=== PATIENT | male | born 1935 | race Caucasian/White ===

== ENCOUNTER 2021-03-04 11:20 | Inpatient (IN) ==
[2021-03-04] MEDS ORDERED: ACETAMINOPHEN 1,000 MG/100 ML VIAL IV STA (11:59)
[2021-03-04] MEDS ORDERED: dexAMETHasone**PF** 10 MG/ML VIAL IV ONE (11:59)
[2021-03-04 12:09] LABS: Mean Corpuscular Hemoglobin 30.6 pg (25-34); Mean Corpuscular Hgb Conc 34.1 g/dL (32-36); Mean Corpuscular Volume 89.7 fL (80-100); Mean Platelet Volume 8.9 fL (7.4-10.4); Platelet Count 363 K/uL (130-400); RDW Coefficient of Variation 13.7 % (11.5-14.5); RDW Standard Deviation 45.2 fL (36.4-46.3); Red Blood Count 4.57 M/uL (4.7-6.1); White Blood Count 8.01 K/uL (4.8-10.8)
[2021-03-04 12:25] LABS: INR 1.1 (0.9-1.1); Partial Thromboplastin Ratio 1.2; Partial Thromboplastin Time 30.6 Seconds (21.0-31.0)
[2021-03-04 12:27] LABS: D Dimer 3880 ug/L FEU (0-500); Immature Granulocytes # (auto) 0.05 K/uL (0.00-0.02); Immature Granulocytes % (auto) 0.6 %; Lymphocytes # (auto) 0.64 K/uL (1.2-3.4); Monocytes # (auto) 0.68 K/uL (0.11-0.59); Monocytes % (auto) 8.5 %; Neutrophils # (auto) 6.64 K/uL (1.4-6.5); Neutrophils % (auto) 82.9 %
[2021-03-04 12:29] LABS: Alanine Aminotransferase 36 U/L (12-78); Albumin Level 3.1 gm/dl (3.4-5.0); Aspartate Aminotransferase 51 U/L (15-37); BUN Creatinine Ratio 36.3 (10-20); Blood Urea Nitrogen 89 mg/dl (7-18); C Reactive Protein 6.91 mg/dl (0-0.29); Calcium 8.3 mg/dl (8.5-10.1); Carbon Dioxide 17 mmol/L (21-32); Chloride 114 mmol/L (98-107); Creatinine Clr Calc Pharmacy 22.2 ml/min; Est GFR (African American) 27.3 ml/min; Est GFR (Non-African American) 23.6 ml/min; Glucose 127 mg/dl (70-99); Magnesium 2.4 mg/dl (1.8-2.4); Sodium 138 mmol/L (136-145)
[2021-03-04 12:34] LABS: Albumin Globulin Ratio 0.7 (0.9-2); Alkaline Phosphatase 50 U/L (45-117); Bilirubin,Total 0.8 mg/dl (0.2-1); Ferritin 1989.5 ng/ml (8-388); Globulin 4.6 gm/dl (2.5-4.0); NT Pro B Type Natriuretic Pept 1527 pg/ml (0-1800); Total Protein 7.7 gm/dl (6.4-8.2); Troponin I < 0.015 ng/ml (0-0.045)
[2021-03-04] MEDS: MAGNESIUM SULFATE / D5W 1 GM/100 ML BAG IV SCH ×2 (12:34→13:04)
--- NOTE | 2021-03-04 13:01 | XRay Report ---
XR chest 1V portable HISTORY: 85 years-old Male SEPSIS acute sepsis COMPARISON: None TECHNIQUE: Semierect portable AP view of the chest FINDINGS: Cardiac silhouette is enlarged. Pulmonary vascular congestion. No pneumothorax. Mild blunting of the costophrenic angles suggestive of trace effusions. Interstitial coarsening with patchy bibasilar and right lateral midlung airspace opacities. Degenerative changes of the shoulders and spine. IMPRESSION: 1. Cardiomegaly with pulmonary vascular congestion. 2. Patchy right lateral midlung and ill-defined bibasilar densities are suspicious for superimposed i nfectious or inflammatory process. 3. Trace pleural effusions. ACT 112: Negative or not required by law. The above report was generated using voice recognition software. It may contain grammatical, syntax o r spelling errors. Electronically signed by: Yehuda Khalil M.D. 03/04/2021 1:00 PM
[2021-03-04] MEDS ORDERED: SODIUM CHLORIDE 0.9% 1000ML 500 ML IV ONE (13:07)
--- NOTE | 2021-03-04 14:12 | History & Physical Report ---
Date of Service March 04, 2021 Assessment & Plan (1) Acute respiratory failure with hypoxia: Plan: Admit to monitored bed Stable on 6 L oxygen mask for now Further treatment as noted below (2) COVID: Plan: Patient has typical Covid pneumonia with accompanying lab abnormalities Was given 6 mg of IV dexamethasone, will continue this for now Start remdesivir for 5-day course Await blood and sputum cultures Albuterol metered-dose inhaler as needed for shortness of breath (3) DILIP (acute kidney injury): Plan: Bladder scan to rule out retention Gentle IV hydration Hold lisinopril (4) D-dimer, elevated: Plan: With hypoxia and Covid diagnosis, PE cannot be definitively ruled out Due to patient's renal dysfunction, CT angiogram could not be performed and a V/Q will be of limited value patient with multifocal pneumonia Because of this, will need to start heparin drip as empiric treatment until definitive testing can be performed Check lower extremity Dopplers (5) Hyperlipidemia: Plan: Patient is on simvastatin 20 mg daily, I will 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 Will hold these for now secondary to relative hypotension and renal dysfunction (7) Hypothyroid: Plan: Continue levothyroxine 50 mcg daily History of Present Illness Chief Complaint: Shortness of breath Primary Care Provider: DWAINE Ybarra This is an 85-year-old male with past medical history of hyperlipidemia, hypertension, and hypothyroidism that presents today with shortness of breath. Unfortunately, the patient is a very poor historian and speaks very little, does not answer many questions and may in fact be confused. There are no family members in the room with the patient at the time my evaluation. History is per ER physician. ER physician tells me that the patient's was recently diagnosed with Covid on 02/23 although she was having few symptoms. Patient himself had not been tested but started experiencing some chills with a cough as well as some malaise and anorexia several days prior to presentation. Patient started having shortness of breath which prompted EMS be called to suddenly bring patient to the emergency room. Triage documentation shows that the patient's blood pressure was stable and that was afebrile but his O2 sat was 89% on room air when he arrived. Patient was started on 5 L nasal cannula and subsequently placed on 6 L oxygen as. He seems to be comfortable with the time my evaluation. ER evaluation is concerning for Covid pneumonia as the patient had hypoxia, mild hypotension, and abnormal laboratory values that have been historically seen with Covid. Chest x-ray also showed bilateral alveolar infiltrate. Patient did subsequently test positive for Covid pneumonia. He is now being admitted for further treatment of this. The patient did note to me that he has not been vaccinated for Covid. Allergies Allergy/AdvReac Type Severity Reaction Status Date / Time No Known Allergies Allergy Verified 03/04/21 13:22 Home Medications Medication Instructions Recorded Confirmed Type amlodipine 10 mg tablet 10 mg PO DAILY #90 tab 06/05/20 03/04/21 Rx levothyroxine 50 mcg tablet 50 mcg PO DAILY 06/05/20 03/04/21 History lisinopril 20 mg tablet 20 mg PO BID #180 tab 06/05/20 03/04/21 Rx metoprolol succinate 50 mg 50 mg PO BID #180 tab 06/05/20 03/04/21 Rx tablet,extended release 24 hr simvastatin 20 mg tablet 20 mg PO DAILY #90 tab 06/05/20 03/04/21 Rx dextromethorphan-guaifenesin 5 10 ml PO Q6H PRN 03/04/21 03/04/21 History mg-100 mg/5 mL oral liquid (Robitussin Cough-Chest Congestion DM) Past Med/Surg History Medical History Hypertension Hypothyroid Surgical History History of cataract extraction Family History Aunt Breast cancer Father Myocardial infarction Denies family history of Ovarian cancer Prostate cancer Colorectal cancer Social History Smoking Status: Never smoker Second Hand Exposure: No; Hx Alcohol Use: No Hx Substance Use: No Preferred Language: Liberian Visual Impairment: No Limitations Hearing Ability: Hard of Hearing Beliefs That Will Affect Care: None marital status: Current Living Situation: Spouse current occupational status: retired How many Children do You have: 3 Feels Safe at Home: Yes caffeine: Yes Dental Care, Regularly: Yes Physical Activity Frequency: Daily Physical Activity Frequency Comment: yard working- hunting Seatbelt Use: always Sunscreen Use: Yes Review of Systems Review of Systems: Patient is not very verbal, may be somewhat confused and review of systems is obtained for this reason. Physical Exam Constitutional: + frail appearing; no acute distress Neck: trachea midline, no thyromegaly Respiratory: + labored breathing Auscultation: + diminished lung sounds and + rales; no crackles, no rhonchi and no wheezes Cardiovascular: Rate/Rhythm: regular rate and regular rhythm Heart Sounds: normal S1, normal S2 and + murmur Gastrointestinal (Abdomen): Inspection/Auscultation: abdomen normal to inspec tion Percussion/Palpation: abdomen soft; abdomen nontender, no guarding, abdomen not rigid and no hepatosplenomegaly Skin: no rashes, warm and dry Psychiatric: Orientation: oriented to person; + uncooperative Speech: + mute (paucity of speech) Affect: + flat affect Results & Data Results & Data ([facility]) Vital Signs (Past 12 Hours) Vital Signs Temp Pulse Pulse Resp BP BP Pulse Ox 03/04/21 13:46 68 20 97/51 L 92 03/04/21 12:59 84 26 H 115/56 L 93 03/04/21 12:57 88 L 03/04/21 11:55 37.3 C 95 H 18 126/62 94 Laboratory Results Laboratory Results WBC 8.01 K/uL (4.8-10.8) 03/04/21 11:48 RBC 4.57 M/uL (4.7-6.1) L 03/04/21 11:48 Hgb 14.0 g/dL (14.0-18.0) 03/04/21 11:48 Hct 41.0 % (42-52) L 03/04/21 11:48 MCV 89.7 fL (80-100) 03/04/21 11:48 MCH 30.6 pg (25-34) 03/04/21 11:48 MCHC 34.1 g/dL (32-36) 03/04/21 11:48 RDW Std Deviation 45.2 fL (36.4-46.3) 03/04/21 11:48 RDW Coeff of Thi 13.7 % (11.5-14.5) 03/04/21 11:48 Plt Count 363 K/uL (130-400) 03/04/21 11:48 MPV 8.9 fL (7.4-10.4) 03/04/21 11:48 Immature Gran % (Auto) 0.6 % 03/04/21 11:48 Neut % (Auto) 82.9 % 03/04/21 11:48 Lymph % (Auto) 8.0 % 03/04/21 11:48 [place] % (Auto) 8.5 % 03/04/21 11:48 Eos % (Auto) 0.0 % 03/04/21 11:48 Baso % (Auto) 0.0 % 03/04/21 11:48 Neut # (Auto) 6.64 K/uL (1.4-6.5) H 03/04/21 11:48 Lymph # (Auto) 0.64 K/uL (1.2-3.4) L 03/04/21 11:48 [place] # (Auto) 0.68 K/uL (0.11-0.59) H 03/04/21 11:48 Eos # (Auto) 0.00 K/uL (0-0.5) 03/04/21 11:48 Baso # (Auto) 0.00 K/uL (0-0.2) 03/04/21 11:48 Immature Gran # (Auto) 0.05 K/uL (0.00-0.02) H 03/04/21 11:48 ESR 43 mm/hr (0-20) H 03/04/21 11:48 PT 11.0 Seconds (9.0-12.0) 03/04/21 11:48 INR 1.1 (0.9-1.1) 03/04/21 11:48 APTT 30.6 Seconds (21.0-31.0) 03/04/21 11:48 PTT Ratio 1.2 03/04/21 11:48 D-Dimer 3880 ug/L FEU (0-500) H* 03/04/21 11:48 Sodium 138 mmol/L (136-145) 03/04/21 11:48 Potassium 5.0 mmol/L (3.5-5.1) 03/04/21 11:48 Chloride 114 mmol/L (98-107) H 03/04/21 11:48 Carbon Dioxide 17 mmol/L (21-32) L 03/04/21 11:48 Anion Gap 7.0 (3-11) 03/04/21 11:48 BUN 89 mg/dl (7-18) H 03/04/21 11:48 Creatinine 2.44 mg/dl (0.6-1.4) H 03/04/21 11:48 Est Cr Clr Drug Dosing 22.2 ml/min 03/04/21 11:48 Est GFR ( Amer) 27.3 ml/min 03/04/21 11:48 Est GFR (Non-Af Amer) 23.6 ml/min 03/04/21 11:48 BUN/Creatinine Ratio 36.3 (10-20) H 03/04/21 11:48 Glucose 127 mg/dl (70-99) H 03/04/21 11:48 Lactate 2.0 mmol/L (0.4-2.0) 03/04/21 12:44 Calcium 8.3 mg/dl (8.5-10.1) L 03/04/21 11:48 Magnesium 2.4 mg/dl (1.8-2.4) 03/04/21 11:48 Ferritin 1989.5 ng/ml (8-388) H 03/04/21 11:48 Total Bilirubin 0.8 mg/dl (0.2-1) 03/04/21 11:48 AST 51 U/L (15-37) H 03/04/21 11:48 ALT 36 U/L (12-78) 03/04/21 11:48 Alkaline Phosphatase 50 U/L (45-117) 03/04/21 11:48 Lactate Dehydrogenase 499 U/L (87-241) H 03/04/21 11:48 Troponin I < 0.015 ng/ml (0-0.045) 03/04/21 11:48 C-Reactive Protein 6.91 mg/dl (0-0.29) H 03/04/21 11:48 NT-Pro-B Natriuret Pep 1527 pg/ml (0-1800) 03/04/21 11:48 Total Protein 7.7 gm/dl (6.4-8.2) 03/04/21 11:48 Albumin 3.1 gm/dl (3.4-5.0) L 03/04/21 11:48 Globulin 4.6 gm/dl (2.5-4.0) H 03/04/21 11:48 Albumin/Globulin Ratio 0.7 (0.9-2) L 03/04/21 11:48 Procalcitonin 0.79 ng/ml (0-0.5) H 03/04/21 11:48 COVID-19 Eval Order Covid19 at [facility] 03/04/21 12:07 SARS-CoV-2 (PCR) POSITIVE (Negative) A* 03/04/21 12:07 Impressions Chest X-Ray 03/04/21 11:59 XR chest 1V portable HISTORY: 85 years-old Male SEPSIS acute sepsis COMPARISON: None TECHNIQUE: Semierect portable AP view of the chest FINDINGS: Cardiac silhouette is enlarged. Pulmonary vascular congestion. No pneumothorax. Mild blunting of the costophrenic angles suggestive of trace effusions. Interstitial coarsening with patchy bibasilar and right lateral midlung airspace opacities. Degenerative changes of the shoulders and spine. IMPRESSION: 1. Cardiomegaly with pulmonary vascular congestion. 2. Patchy right lateral midlung and ill-defined bibasilar densities are suspicious for superimposed infectious or inflammatory process. 3. Trace pleural effusions. ACT 112: Negative or not required by law. The above report was generated using voice recognition software. It may contain grammatical, syntax or spelling errors. Electronically signed by: Yehuda Khalil M.D. 03/04/2021 1:00 PM PG Care Time/CCT Total # of Minutes Spent Total Time Spent with Patient: Total time spent is greater than 50% in coordination of care (as documented) at patient's floor/unit and/or counseling patient: Coding Level of Care Code 44244 Initial Inpt Care Lvl 3 Diagnoses Hyperlipidemia E78.5 Hypertension I10 Hypothyroid E03.9 Acute respiratory failure with hypoxia J96.01 COVID U07.1 DILIP (acute kidney injury) N17.9 D-dimer, elevated R79.89
[2021-03-04] MEDS ORDERED: REMDESIVIR 200 MG in SODIUM CHLORIDE 0.9% 210 ML IV STA (14:35)
[2021-03-04] MEDS ORDERED: Heparin IV Adult Wt-Based Standard WITH Bolus Protocol STA (14:35)
[2021-03-04] MEDS ORDERED: HEPARIN SOD (PORCINE) 1000 UNIT/ML ONE (14:55)
[2021-03-04] MEDS ORDERED: HEPARIN 25000 UNIT/500 ML D5W IV ONE (14:55)
--- NOTE | 2021-03-04 16:49 | Emergency Department Note ---
Impression & Plan COVID, Acute respiratory failure with hypoxia, DILIP (acute kidney injury), D- dimer, elevated ED Provider Note NAME: STU MARK AGE: 85 SEX: M : 1935 ARRIVES VIA: Ambulance INFORMANT: Patient, EMS, son: Bob: [phone] ED PROVIDER(S): Donnell Mendoza MD CHIEF COMPLAINT: Resp distress HPI: Records review reveals that the patient had a wellness visit in November and has a history of hypertension hyperlipidemia. This is an 85-year-old male who presents to the emergency department from home. The patient's was diagnosed with Covid last Tuesday. Patient's son reports that the patient has been laying on the couch for at least the past week and has not been really eating or drinking. The patient himself has no complaints though appears very confused. An ambulance was summoned to the house and EMS reports that they started an IV and gave the patient some fluid as well as a breathing treatment. The patient was also placed on oxygen. The patient was noted to be hypoxic when the ambulance arrived the patient has not been tested yet however he is complaining of general weakness along with aches and pains. He reports nothing appears to make the weakness any better or worse and he has not taken anything for it. ROS: See above HPI for pertinent positives & negatives. A total of 10 systems reviewed and were otherwise negative. PAST MEDICAL HISTORY: See Below PAST SURGICAL HISTORY: See Below FAMILY HISTORY: See Below SOCIAL HISTORY: See Below HOME MEDICATIONS: See Below ALLERGIES: See Below VITALS: See Below PHYSICAL EXAMINATION: VITAL SIGNS - Vital signs and nursing notes were reviewed. GENERAL - 85-year-old male appearing stated age who is in no acute distress. Pt appears confused to where he is as well as time/date SKIN - Without rashes. HEAD - NC/AT. EYES - PERRL with EOMI bilaterally. Sclera anicteric. Palpebral conjunctiva pink and moist with no injection noted. EARS - No deformities of external structures noted on gross examination bila terally. NOSE - Midline and without cyanosis. No epistaxis or purulent drainage noted. Septum midline without deviation or septal hematoma noted. MOUTH/OROPHARYNX - Without perioral cyanosis. Buccal mucosa pink and moist and without leukoplakia. Tongue midline with equal elevation of palate bilaterally. No tonsillar hypertrophy, erythema, or exudates noted. NECK - Neck with FROM. Supple to palpation. LUNGS - Chest wall symmetric without accessory muscle use, intercostals retractions, or central cyanosis. Normal vesicular breath sounds CTA B/L. No wheezes, rales, or rhonchi appreciated. CARDIAC - RRR with S1/S2. No murmur, rubs, or gallops appreciated. ABDOMEN - Abdominal contour without pulsations or visible masses. BS normoactive all four quadrants. No tenderness, palpable masses, hepatosplenomegaly, or ascites noted. EXTREMITIES - No clubbing or peripheral cyanosis. No pretibial edema present. +3/5 radial, posterior tibial, and dorsalis pedis pulses palpated throughout. +5 /5 strength noted in UE/LE bilaterally. NEUROLOGIC - Cranial nerves II through XII grossly intact. Sensory intact to light touch throughout. Patellar reflexes +2/4. PSYCH - A&Ox3 and cooperates fully with examiner. Pt is very pleasant and interacts well with examiner. MEDICAL DECISION MAKING: Patient was seen and evaluated as above in room B8. Review was performed of nursing notes and vital signs. I did review pertinent previous visits and patient history. After obtaining a thorough history and physical examination the above work up was performed. This is an 85-year-old male who presents emergency department hypoxic. He is found to be Covid positive. He also has an elevated D-dimer however is also in acute renal failure. Based on this the patient was started on Gentle IV hydration. The patient was given Decadron as well. He was started on a heparin drip here in the emergency department and given magnesium. Because the patient is requiring oxygen and is in acute renal failure I did discuss the case with the hospitalist service who did agree to admit the patient. I also spoke with the son at length over the patient's condition. They are going to have a family meeting about their father's condition until that time the patient is a full code. Patient's chest x-ray interpreted by me is concerning for multifocal pneumonia consistent with pneumonia. Patient also appears to be in a new onset atrial fibrillation. An order was placed for continuous cardiac monitoring. The monitor shows a rate of 83 with Atrial fib rhythm. The patient was evaluated during a period of high volume and high acuity during the global COVID-19 pandemic, and that diagnosis was suspected/considered upon their initial presentation. Their evaluation, treatment and testing was consi stent with current guidelines for patients who present with complaints or symptoms that may be related to COVID-19. Patient was seen while provider was wearing PPE. Triage Nursing notes reviewed. Prior medical records reviewed Vital Signs: reviewed and remarkable for no significant abnormalities Differential diagnosis: Reactive airway disease, pneumonia, pneumothorax, COPD, CHF, infections, cardiac ischemia, pulmonary embolism, musculoskeletal, gastrointestinal, as well as other pathologies. ER treatment provided: See below Diagnostics interpreted by me: ECG: EKG shows an atrial fibrillation QTC is 433 ventricular rate is [address] elevation or depression there is no previous EKG to compare to Laboratory studies: As stated above and show below. Imaging studies: See below Consultation(s): Internal Medicine ED COURSE: Procedures: none PDMP:reviewed and no issues Critical Care: I have personally spent greater than 30 minutes of critical care time in the direct management of this patient. This includes bedside care, interpretation of diagnostic studies, and testing, discussion with consultants, patient, and family members, and other required patient management activities. This 30 minutes is in excess of all separately billable procedures. Past Med/Surg History Medical History Hypertension Hypothyroid Surgical History History of cataract extraction Family History Aunt Breast cancer Father Myocardial infarction Denies family history of Ovarian cancer Prostate cancer Colorectal cancer Social History Smoking Status: Never smoker Second Hand Exposure: No; Hx Alcohol Use: No Hx Substance Use: No Preferred Language: Spanish Communication Ability: Effective Visual Impairment: No Limitations Hearing Ability: Hard of Hearing [employer] Security Required: No Beliefs That Will Affect Care: None marital status: Current Living Situation: Spouse current occupational status: retired How many Children do You have: 3 Other Information That Helps Us Care for You: No Feels Safe at Home: Yes Safety Concerns: Feels Safe At This Time caffeine: Yes Dental Care, Regularly: Yes Physical Activity Frequency: Daily Physical Activity Frequency Comment: yard working- hunting Seatbelt Use: always Sunscreen Use: Yes Assistive Devices: None Allergies Allergies Allergy/AdvReac Type Severity Reaction Status Date / Time No Known Allergies Allergy Verified 03/04/21 13:22 Home Meds Home Medications Medication Instructions Recorded Confirmed levothyroxine 50 mcg tablet 50 mcg PO DAILY 06/05/20 03/04/21 dextromethorphan-guaifenesin 5 10 ml PO Q6H PRN 03/04/21 03/04/21 mg-100 mg/5 mL oral liquid (Robitussin Cough-Chest Congestion DM) Previous Rx's Medication Instructions Recorded amlodipine 10 mg tablet 10 mg PO DAILY #90 tab 06/05/20 lisinopril 20 mg tablet 20 mg PO BID #180 tab 06/05/20 metoprolol succinate 50 mg 50 mg PO BID #180 tab 06/05/20 tablet,extended release 24 hr simvastatin 20 mg tablet 20 mg PO DAILY #90 tab 06/05/20 Results & Data (ED) Vital Signs Vital Signs - 24 hr 03/04/21 11:55 03/04/21 12:57 03/04/21 12:59 Temperature 37.3 C Temperature Source Oral Pulse Rate 95 H Pulse Rate [Finger] 84 Respiratory Rate 18 26 H Blood Pressure 126/62 Blood Pressure [Left Arm] 115/56 L Blood Pressure Mean 83 Blood Pressure Mean [Left Arm] 75 Pulse Oximetry 94 88 L 93 Oxygen Delivery Method Nasal Cannula Nasal Cannula Oxymask Oxygen Flow Rate 5 5 6 Sepsis Recent Fever Within 48 Hours Yes Sepsis New/Unexplained Change in Mental Status N/A Sepsis Action Taken by Nursing No Action Required Oxygen Flow Rate - Titration 6 Pulse Oximetry Post Tiitration 91 03/04/21 13:46 03/04/21 14:38 Temperature Temperature Source Pulse Rate Pulse Rate [Finger] 68 83 Respiratory Rate 20 22 Blood Pressure Blood Pressure [Left Arm] 97/51 L 114/73 Blood Pressure Mean Blood Pressure Mean [Left Arm] 66 86 Pulse Oximetry 92 92 Oxygen Delivery Method Oxymask Oxymask Oxygen Flow Rate 6 6 Sepsis Recent Fever Within 48 Hours Sepsis New/Unexplained Change in Mental Status Sepsis Action Taken by Nursing Oxygen Flow Rate - Titration Pulse Oximetry Post Tiitration Laboratory Data Result diagrams: 03/07/21 05:28 03/07/21 16:29 Lab Results 03/04/21 03/04/21 03/04/21 Range/Units 11:48 11:48 11:48 WBC 8.01 (4.8-10.8) K/uL RBC 4.57 L (4.7-6.1) M/uL Hgb 14.0 (14.0-18.0) g/dL Hct 41.0 L (42-52) % MCV 89.7 (80-100) fL MCH 30.6 (25-34) pg MCHC 34.1 (32-36) g/dL RDW Std Deviation 45.2 (36.4-46.3) fL RDW Coeff of Thi 13.7 (11.5-14.5) % Plt Count 363 (130-400) K/uL MPV 8.9 (7.4-10.4) fL Immature Gran % (Auto) 0.6 % Neut % (Auto) 82.9 % Lymph % (Auto) 8.0 % Davidson % (Auto) 8.5 % Eos % (Auto) 0.0 % Baso % (Auto) 0.0 % Neut # (Auto) 6.64 H (1.4-6.5) K/uL Lymph # (Auto) 0.64 L (1.2-3.4) K/uL Davidson # (Auto) 0.68 H (0.11-0.59) K/uL Eos # (Auto) 0.00 (0-0.5) K/uL Baso # (Auto) 0.00 (0-0.2) K/uL Immature Gran # (Auto) 0.05 H (0.00-0.02) K/uL ESR 43 H (0-20) mm/hr PT 11.0 (9.0-12.0) Seconds INR 1.1 (0.9-1.1) APTT 30.6 (21.0-31.0) Seconds PTT Ratio 1.2 D-Dimer 3880 H* (0-500) ug/L FEU Sodium (136-145) mmol/L Potassium (3.5-5.1) mmol/L Chloride (98-107) mmol/L Carbon Dioxide (21-32) mmol/L Anion Gap (3-11) BUN (7-18) mg/dl Creatinine (0.6-1.4) mg/dl Est Cr Clr Drug Dosing ml/min Est GFR ( Amer) ml/min Est GFR (Non-Af Amer) ml/min BUN/Creatinine Ratio (10-20) Glucose (70-99) mg/dl Lactate (0.4-2.0) mmol/L Calcium (8.5-10.1) mg/dl Magnesium (1.8-2.4) mg/dl Ferritin (8-388) ng/ml Total Bilirubin (0.2-1) mg/dl AST (15-37) U/L ALT (12-78) U/L Alkaline Phosphatase (45-117) U/L Lactate Dehydrogenase (87-241) U/L Troponin I (0-0.045) ng/ml C-Reactive Protein (0-0.29) mg/dl NT-Pro-B Natriuret Pep (0-1800) pg/ml Total Protein (6.4-8.2) gm/dl Albumin (3.4-5.0) gm/dl Globulin (2.5-4.0) gm/dl Albumin/Globulin Ratio (0.9-2) Procalcitonin (0-0.5) ng/ml COVID-19 Eval Order SARS-CoV-2 (PCR) (Negative) 03/04/21 03/04/21 03/04/21 Range/Units 11:48 11:48 11:48 WBC (4.8-10.8) K/uL RBC (4.7-6.1) M/uL Hgb (14.0-18.0) g/dL Hct (42-52) % MCV (80-100) fL MCH (25-34) pg MCHC (32-36) g/dL RDW Std Deviation (36.4-46.3) fL RDW Coeff of Thi (11.5-14.5) % Plt Count (130-400) K/uL MPV (7.4-10.4) fL Immature Gran % (Auto) % Neut % (Auto) % Lymph % (Auto) % Davidson % (Auto) % Eos % (Auto) % Baso % (Auto) % Neut # (Auto) (1.4-6.5) K/uL Lymph # (Auto) (1.2-3.4) K/uL Davidson # (Auto) (0.11-0.59) K/uL Eos # (Auto) (0-0.5) K/uL Baso # (Auto) (0-0.2) K/uL Immature Gran # (Auto) (0.00-0.02) K/uL ESR (0-20) mm/hr PT (9.0-12.0) Seconds INR (0.9-1.1) APTT (21.0-31.0) Seconds PTT Ratio D-Dimer (0-500) ug/L FEU Sodium 138 (136-145) mmol/L Potassium 5.0 (3.5-5.1) mmol/L Chloride 114 H (98-107) mmol/L Carbon Dioxide 17 L (21-32) mmol/L Anion Gap 7.0 (3-11) BUN 89 H (7-18) mg/dl Creatinine 2.44 H (0.6-1.4) mg/dl Est Cr Clr Drug Dosing 22.2 ml/min Est GFR ( Amer) 27.3 ml/min Est GFR (Non-Af Amer) 23.6 ml/min BUN/Creatinine Ratio 36.3 H (10-20) Glucose 127 H (70-99) mg/dl Lactate (0.4-2.0) mmol/L Calcium 8.3 L (8.5-10.1) mg/dl Magnesium 2.4 (1.8-2.4) mg/dl Ferritin 1989.5 H (8-388) ng/ml Total Bilirubin 0.8 (0.2-1) mg/dl AST 51 H (15-37) U/L ALT 36 (12-78) U/L Alkaline Phosphatase 50 (45-117) U/L Lactate Dehydrogenase 499 H (87-241) U/L Troponin I < 0.015 (0-0.045) ng/ml C-Reactive Protein 6.91 H (0-0.29) mg/dl NT-Pro-B Natriuret Pep 1527 (0-1800) pg/ml Total Protein 7.7 (6.4-8.2) gm/dl Albumin 3.1 L (3.4-5.0) gm/dl Globulin 4.6 H (2.5-4.0) gm/dl Albumin/Globulin Ratio 0.7 L (0.9-2) Procalcitonin 0.79 H (0-0.5) ng/ml COVID-19 Eval Order SARS-CoV-2 (PCR) (Negative) 03/04/21 03/04/21 03/04/21 Range/Units 12:07 12:07 12:44 WBC (4.8-10.8) K/uL RBC (4.7-6.1) M/uL Hgb (14.0-18.0) g/dL Hct (42-52) % MCV (80-100) fL MCH (25-34) pg MCHC (32-36) g/dL RDW Std Deviation (36.4-46.3) fL RDW Coeff of Thi (11.5-14.5) % Plt Count (130-400) K/uL MPV (7.4-10.4) fL Immature Gran % (Auto) % Neut % (Auto) % Lymph % (Auto) % Davidson % (Auto) % Eos % (Auto) % Baso % (Auto) % Neut # (Auto) (1.4-6.5) K/uL Lymph # (Auto) (1.2-3.4) K/uL Davidson # (Auto) (0.11-0.59) K/uL Eos # (Auto) (0-0.5) K/uL Baso # (Auto) (0-0.2) K/uL Immature Gran # (Auto) (0.00-0.02) K/uL ESR (0-20) mm/hr PT (9.0-12.0) Seconds INR (0.9-1.1) APTT (21.0-31.0) Seconds PTT Ratio D-Dimer (0-500) ug/L FEU Sodium (136-145) mmol/L Potassium (3.5-5.1) mmol/L Chloride (98-107) mmol/L Carbon Dioxide (21-32) mmol/L Anion Gap (3-11) BUN (7-18) mg/dl Creatinine (0.6-1.4) mg/dl Est Cr Clr Drug Dosing ml/min Est GFR ( Amer) ml/min Est GFR (Non-Af Amer) ml/min BUN/Creatinine Ratio (10-20) Glucose (70-99) mg/dl Lactate 2.0 (0.4-2.0) mmol/L Calcium (8.5-10.1) mg/dl Magnesium (1.8-2.4) mg/dl Ferritin (8-388) ng/ml Total Bilirubin (0.2-1) mg/dl AST (15-37) U/L ALT (12-78) U/L Alkaline Phosphatase (45-117) U/L Lactate Dehydrogenase (87-241) U/L Troponin I (0-0.045) ng/ml C-Reactive Protein (0-0.29) mg/dl NT-Pro-B Natriuret Pep (0-1800) pg/ml Total Protein (6.4-8.2) gm/dl Albumin (3.4-5.0) gm/dl Globulin (2.5-4.0) gm/dl Albumin/Globulin Ratio (0.9-2) Procalcitonin (0-0.5) ng/ml COVID-19 Eval Order Covid19 at [facility] SARS-CoV-2 (PCR) POSITIVE A* (Negative) Administered Medications Atorvastatin Calcium (Atorvastatin 20 Mg Tab) 20 mg PO QAM KEE Stop: 04/04/21 08:59 Last Admin: 03/07/21 10:02 Dose: 20 mg Documented by: [id number] Admin: 03/06/21 09:42 Dose: 20 mg Documented by: [id number] Admin: 03/05/21 08:37 Dose: 20 mg Documented by: [id number] Dexamethasone 6 mg/ Syringe 1.5 mls @ 1 mls/min IV DAILY@1200 KEE Stop: 04/04/21 11:59 Last Admin: 03/07/21 12:19 Dose: 1 mls/min Documented by: [id number] Admin: 03/06/21 11:27 Dose: 1 mls/min Documented by: [id number] Admin: 03/05/21 11:49 Dose: 1 mls/min Documented by: [id number] Dextrose (D5w) 1,000 mls @ 125 mls/hr IV .Q8H KEE Stop: 04/06/21 17:29 Last Admin: 03/07/21 17:35 Dose: 125 mls/hr Documented by: [id number] Levothyroxine Sodium (Levothyroxine Sodium 50 Mcg Tablet) 50 mcg PO DAILYBB KEE Stop: 04/04/21 06:29 Last Admin: 03/07/21 06:37 Dose: 50 mcg Documented by: [id number] Admin: 03/06/21 06:49 Dose: 50 mcg Documented by: [id number] Admin: 03/05/21 05:49 Dose: 50 mcg Documented by: [id number] Discontinued Medications Dexamethasone Sodium Phosphate (DexamethasonePf 10 Mg/Ml Vial) 6 mg IV NOW ONE Stop: 03/04/21 12:00 Last Admin: 03/04/21 12:33 Dose: 6 mg Documented by: [id number] Heparin Sodium (Porcine) (Heparin Sod (Porcine) 1000 Unit/Ml) Confirm Administered Dose 1,000 units .ROUTE .STK-MED ONE Stop: 03/04/21 14:56 Last Admin: 03/04/21 15:01 Dose: 6,000 units Documented by: [id number] Cosigned by: [id number] Heparin Sodium (Porcine) (Heparin Sod 5,000 Unit/0.5 Ml Vial) 5,000 units SQ Q8 KEE Stop: 04/04/21 21:59 Last Admin: 03/06/21 06:49 Dose: 5,000 units Documented by: [id number] Admin: 03/05/21 23:41 Dose: 5,000 units Documented by: [id number] Heparin Sodium/Dextrose (Heparin Iv Adult Wt-Based Standard With Bolus Protocol) 1 ea N/A NOW STA; Protocol Stop: 03/04/21 14:36 Last Admin: 03/04/21 15:02 Dose: Not Given Documented by: [id number] Heparin Sodium/Dextrose (Heparin 01406 Unit/500 Ml D5w) Confirm Administered Dose 25,000 units IV .STK-MED ONE Stop: 03/04/21 14:56 Last Admin: 03/04/21 15:03 Dose: 1,250 units Documented by: [id number] Cosigned by: [id number] Acetaminophen (Ofirmev) 1,000 mg in 100 mls @ 400 mls/hr IV NOW STA Stop: 03/04/21 12:13 Last Infusion: 03/04/21 12:56 Dose: 0 mls/hr Documented by: [id number] Admin: 03/04/21 12:33 Dose: 400 mls/hr Documented by: [id number] Magnesium Sulfate/Dextrose (Magnesium Sulfate / D5w) 1 gm in 100 mls @ 200 mls/hr IV Q30M KEE Stop: 03/04/21 13:00 Last Infusion: 03/04/21 13:45 Dose: 0 mls/hr Documented by: [id number] Admin: 03/04/21 13:04 Dose: 200 mls/hr Documented by: [id number] Infusion: 03/04/21 13:04 Dose: 0 mls/hr Documented by: [id number] Admin: 03/04/21 12:34 Dose: 200 mls/hr Documented by: [id number] Sodium Chloride (Nss 1000ml) 500 mls @ 999 mls/hr IV .Q31M ONE Stop: 03/04/21 13:37 Last Infusion: 03/04/21 14:23 Dose: 0 mls/hr Documented by: [id number] Admin: 03/04/21 13:44 Dose: 999 mls/hr Documented by: [id number] Remdesivir 200 mg/ Sodium (Chloride) 250 mls @ 125 mls/hr IV ONE [facility] [place]; Protocol Stop: 03/04/21 16:34 Last Infusion: 03/04/21 17:11 Dose: 0 mls/hr Documented by: [id number] Admin: 03/04/21 15:00 Dose: 125 mls/hr Documented by: [id number] Sodium Chloride (Nss 1000ml) 1,000 mls @ 100 mls/hr IV .Q10H ON LICENSE OF [facility] Stop: 04/03/21 20:39 Last Infusion: 03/05/21 15:28 Dose: 0 mls/hr Documented by: [id number] Admin: 03/05/21 11:48 Dose: 100 mls/hr Documented by: [id number] Infusion: 03/05/21 11:48 Dose: 100 mls/hr Documented by: [id number] Admin: 03/05/21 05:49 Dose: 100 mls/hr Documented by: [id number] Infusion: 03/05/21 05:49 Dose: 100 mls/hr Documented by: [id number] Admin: 03/04/21 21:14 Dose: 100 mls/hr Documented by: [id number] Heparin Sodium/Dextrose (Heparin Sodium/Dextrose) 25,000 units in 500 mls @ 24 mls/hr IV .[id number] ON LICENSE OF [facility]; Protocol Stop: 04/03/21 20:39 Last Titration: 03/05/21 21:30 Dose: 0 units/hr, 0 mls/hr Documented by: [id number] Cosigned by: [id number] Titration: 03/05/21 05:32 Dose: 1,200 units/hr, 24 mls/hr Documented by: [id number] Cosigned by: [id number] Admin: 03/04/21 22:32 Dose: 1,200 units/hr, 24 mls/hr Documented by: [id number] Cosigned by: [id number] Titration: 03/04/21 22:32 Dose: 1,250 units/hr, 25 mls/hr Documented by: [id number] Cosigned by: [id number] Admin: 03/04/21 22:06 Dose: 1,250 units/hr, 25 mls/hr Documented by: [id number] Cosigned by: [id number] Remdesivir 100 mg/ Sodium (Chloride) 250 mls @ 250 mls/hr IV DAILY@1200 KEE; Protocol Stop: 03/08/21 12:59 Last Infusion: 03/05/21 13:25 Dose: 0 mls/hr Documented by: [id number] Admin: 03/05/21 11:49 Dose: 250 mls/hr Documented by: [id number] Sodium Chloride (Nss 1000ml) 1,000 mls @ 500 mls/hr IV .Q2H ONE Stop: 03/05/21 02:42 Last Infusion: 03/05/21 03:00 Dose: 0 mls/hr Documented by: [id number] Admin: 03/05/21 00:59 Dose: 500 mls/hr Documented by: [id number] Heparin Sodium/Dextrose (Heparin Sodium/Dextrose) 25,000 units in 500 mls @ 24 mls/hr IV .[id number] ON LICENSE OF [facility]; Protocol Stop: 04/05/21 08:29 Last Admin: 03/07/21 17:27 Dose: Not Given Documented by: [id number] Ceftriaxone Sodium 1,000 mg/ (Dextrose) 50 mls @ 100 mls/hr IV Q24H ON LICENSE OF [facility]; Protocol Stop: 03/16/21 11:14 Last Infusion: 03/07/21 11:51 Dose: 0 mls/hr Documented by: [id number] Admin: 03/07/21 11:02 Dose: 100 mls/hr Documented by: [id number] Infusion: 03/06/21 11:58 Dose: 0 mls/hr Documented by: [id number] Admin: 03/06/21 11:26 Dose: 100 mls/hr Documented by: [id number] Dextrose (D5w) 1,000 mls @ 125 mls/hr IV .Q8H ON LICENSE OF [facility] Stop: 03/07/21 16:58 Last Admin: 03/07/21 08:33 Dose: 80 mls/hr Documented by: [id number] Lorazepam (Ativan) 0.5 mg in 1 mls @ 1 mls/min IV NOW STA Stop: 03/07/21 14:53 Last Admin: 03/07/21 15:20 Dose: 1 mls/min Documented by: [id number] Metoprolol Succinate (Metoprolol Succ 25mg Ext Rel Tab) 25 mg PO BID KEE Stop: 04/04/21 20:59 Last Admin: 03/05/21 19:54 Dose: 25 mg Documented by: [id number] Metoprolol Tartrate (Metoprolol Tartrate 25 Mg Tab) 25 mg PO QID KEE Stop: 04/05/21 08:59 Last Admin: 03/07/21 12:19 Dose: 25 mg Documented by: [id number] Admin: 03/07/21 10:02 Dose: 25 mg Documented by: [id number] Admin: 03/06/21 20:15 Dose: 25 mg Documented by: [id number] Admin: 03/06/21 16:48 Dose: 25 mg Documented by: [id number] Admin: 03/06/21 12:50 Dose: 25 mg Documented by: [id number] Admin: 03/06/21 09:17 Dose: 25 mg Documented by: [id number] Olanzapine (Olanzapine 10 Mg/2.1 Ml Sdv) 2.5 mg IM Q2H KEE Stop: 04/06/21 10:29 Last Admin: 03/07/21 17:27 Dose: Not Given Documented by: [id number] Olanzapine (Olanzapine 2.5 Mg Tab) 2.5 mg PO QAM KEE Stop: 04/06/21 10:29 Last Admin: 03/07/21 11:02 Dose: 2.5 mg Documented by: [id number] Olanzapine (Olanzapine 10 Mg/2.1 Ml Sdv) 2.5 mg IM Q2H PRN PRN Reason: Agitation Stop: 04/06/21 10:29 Last Admin: 03/07/21 14:08 Dose: 2.5 mg Documented by: [id number] Sodium Bicarbonate (Sodium Bicarbonate 650 Mg Tab) 1,300 mg PO BID KEE Stop: 04/04/21 14:59 Last Admin: 03/06/21 09:18 Dose: 1,300 mg Documented by: [id number] Admin: 03/05/21 19:54 Dose: 1,300 mg Documented by: [id number] Admin: 03/05/21 16:11 Dose: 1,300 mg Documented by: [id number] Sodium Bicarbonate (Sodium Bicarbonate 650 Mg Tab) 650 mg PO BID ON LICENSE OF [facility] Stop: 04/05/21 20:59 Last Admin: 03/06/21 20:15 Dose: 650 mg Documented by: [id number] Sodium Chloride (Sodium Chloride 0.9% 10ml Flush) 30 ml IV Q24H ON LICENSE OF [facility] Stop: 03/08/21 12:02 Last Admin: 03/06/21 11:29 Dose: Not Given Documented by: [id number] Admin: 03/05/21 11:49 Dose: 30 ml Documented by: [id number] Imaging Data Radiologist's Impression: Chest X-Ray 03/04/21 11:59 XR chest 1V portable HISTORY: 85 years-old Male SEPSIS acute sepsis COMPARISON: None TECHNIQUE: Semierect portable AP view of the chest FINDINGS: Cardiac silhouette is enlarged. Pulmonary vascular congestion. No pneumothorax. Mild blunting of the costophrenic angles suggestive of trace effusions. Interstitial coarsening with patchy bibasilar and right lateral midlung airspace opacities. Degenerative changes of the shoulders and spine. IMPRESSION: 1. Cardiomegaly with pulmonary vascular congestion. 2. Patchy right lateral midlung and ill-defined bibasilar densities are suspicious for superimposed infectious or inflammatory process. 3. Trace pleural effusions. ACT 112: Negative or not required by law. The above report was generated using voice recognition software. It may contain grammatical, syntax or spelling errors. Electronically signed by: Yehuda Khalil M.D. 03/04/2021 1:00 PM Discharge Plan Visit Data Chief Complaint: Illness Stated Complaint: COUGH, COVID SX, COVID EXPOSURE ED Provider: Donnell Mendoza Discharge Problem: COVID, Acute respiratory failure with hypoxia, DILIP (acute kidney injury), D- dimer, elevated Patient Disposition: Admitted As Inpatient Discharge Instructions Interventions: ED Discharge Assessment Last Done: 03/04/21 20:25
[2021-03-04 17:03] LABS: Appearance Urine Cloudy (Clear); Bacteria Urine Automated Negative (Negative); Bilirubin Urine Negative (Negative); Blood Urine Trace (Negative); Color Urine Yellow; Epithelial Cell Urine Auto >30 /lpf (0-5); Glucose Urine UA Negative (Negative); Ketones Urine Negative (Negative); Leukocyte Esterase Urine Negative (Negative); Nitrite Urine Negative (Negative); Protein Urine 1+ (Negative); RBC Urine Automated 0-4 /hpf (0-4); Specific Gravity Urine 1.018 (1.000-1.030); Urobilinogen Urine Negative (Negative)
[2021-03-04] MEDS ORDERED: ACETAMINOPHEN 325 MG TAB PO PRN (20:40)
[2021-03-04] MEDS ORDERED: guaiFENesin/DEXTROM SYRUP 200MG/20MG 10ML UDC PO PRN (20:40)
[2021-03-04] MEDS ORDERED: HEPARIN SOD (PORCINE) 1000 UNIT/ML IV ONE (20:40)
[2021-03-04] MEDS ORDERED: Heparin IV Adult Wt-Based Standard WITH Bolus Protocol IV SCH (21:00)
[2021-03-04] MEDS: SODIUM CHLORIDE 0.9% 1000ML 1,000 ML IV SCH (21:14)
[2021-03-04] MEDS: HEPARIN SODIUM/DEXTROSE 25,000 UNITS/500 ML BAG IV SCH ×2 (22:06→22:32)
[2021-03-04 22:08] LABS: Partial Thromboplastin Ratio 2.8
[2021-03-04 22:30] LABS: Partial Thromboplastin Time 74.4 Seconds (21.0-31.0)
[2021-03-05] MEDS ORDERED: SODIUM CHLORIDE 0.9% 1000ML 1,000 ML IV ONE (00:43)
[2021-03-05 05:04] LABS: Hematocrit (blood only) 37.6 % (42-52); Hemoglobin 12.8 g/dL (14.0-18.0); Mean Corpuscular Hemoglobin 30.4 pg (25-34); Mean Corpuscular Volume 89.3 fL (80-100); Mean Platelet Volume 8.7 fL (7.4-10.4); Platelet Count 392 K/uL (130-400); RDW Coefficient of Variation 13.5 % (11.5-14.5); RDW Standard Deviation 44.4 fL (36.4-46.3); Red Blood Count 4.21 M/uL (4.7-6.1); White Blood Count 6.07 K/uL (4.8-10.8)
[2021-03-05 05:23] LABS: Partial Thromboplastin Ratio 2.4
[2021-03-05 05:25] LABS: Partial Thromboplastin Time 64.2 Seconds (21.0-31.0)
[2021-03-05 05:26] LABS: Albumin Level 2.6 gm/dl (3.4-5.0); BUN Creatinine Ratio 41.7 (10-20); Bilirubin Direct 0.2 mg/dl (0-0.2); Calcium 7.8 mg/dl (8.5-10.1); Creatinine Clr Calc Pharmacy 30.5 ml/min; Est GFR (African American) 40.8 ml/min; Est GFR (Non-African American) 35.2 ml/min; Potassium 4.6 mmol/L (3.5-5.1)
[2021-03-05 05:29] LABS: Bilirubin,Total 0.5 mg/dl (0.2-1); Total Protein 6.9 gm/dl (6.4-8.2)
[2021-03-05] MEDS: LEVOTHYROXINE SODIUM 50 MCG TABLET PO SCH (05:49)
[2021-03-05] MEDS: SODIUM CHLORIDE 0.9% 1000ML 1,000 ML IV SCH ×2 (05:49→11:48)
[2021-03-05 06:04] LABS: Basophils # (auto) 0.01 K/uL (0-0.2); Basophils % (auto) 0.2 %; Immature Granulocytes # (auto) 0.05 K/uL (0.00-0.02); Immature Granulocytes % (auto) 0.8 %; Lymphocytes # (auto) 0.49 K/uL (1.2-3.4); Lymphocytes % (auto) 8.1 %; Monocytes # (auto) 0.45 K/uL (0.11-0.59); Monocytes % (auto) 7.4 %; Neutrophils # (auto) 5.07 K/uL (1.4-6.5); Neutrophils % (auto) 83.5 %
[2021-03-05] MEDS: ATORVASTATIN 20 MG TAB PO SCH (08:37)
[2021-03-05] MEDS: dexAMETHasone 6 MG in SYRINGE 0 ML IV SCH (11:49)
[2021-03-05] MEDS: SODIUM CHLORIDE 0.9% 10ML FLUSH IV SCH (11:49)
[2021-03-05] MEDS ORDERED: REMDESIVIR 100 MG in SODIUM CHLORIDE 0.9% 230 ML IV SCH (12:00)
--- NOTE | 2021-03-05 14:55 | Hospitalist Progress Note ---
Date of Service March 05, 2021 Assessment & Plan (1) Acute respiratory failure with hypoxia: Plan: Continue on PCUAim O2 sats > 90% Secondary to OCVID-19 pneumonia (2) COVID: Plan: Patient has typical Covid pneumonia with accompanying lab abnormalities Continue Continue remdesivir for 5-day course, renal function improving Await blood and sputum cultures Albuterol metered-dose inhaler as needed for shortness of breath (3) DILIP (acute kidney injury): Plan: Bladder scan to rule out retention > 400ml Stop further NSS as making him acidotic and renal function now close to baseline Hold lisinopril (4) D-dimer, elevated: Plan: Given hemodynamic stability and only mild hypoxia with d-dimer within range expected for COVID-19 will discontinue heparin IV drip and switch to VTE prophylaxis No calf pain / tenderness / swelling to suggest DVT (5) Hyperlipidemia: Plan: Patient is on simvastatin 20 mg daily, switched to Lipitor, potential interaction with amlodipine (6) Hypertension: Plan: Was on metoprolol, lisinopril, and amlodipine. Restart on metoprolol at half his usual dose to avoid rebound tachycardia (7) Hypothyroid: Plan: Continue levothyroxine 50 mcg daily Plan: VTE prophylaxis - heparin 5000 units Q8H SQ. Given advanced age and nutritional status will avod higher COVID dose of 7500 Disposition - continue on PCU Admission and Anticipated Discharge Date Admission Date: March 04, 2021 Subjective Reports some mild improvement overnight. Tells me he is here because his told him to come to the hospital. Sick of "several days". He denies any pain. Dry cough. Nasal congestion. Decreased appetite. Compliant with medication although history presumably unreliable given he cannot give me accurate timeline of events. He reports not getting vaccinated but he wish he had now. No real reason for not getting the vaccine. No urinary symptoms. Updated his son over the phone. Reports thinking his father on approximately day 6 of his illness. Review of Systems Review of Systems: All systems reviewed & are unremarkable except as noted in HPI & below Physical Exam Constitutional: well developed and + acute distress (respiratory); + not well nourished Eyes: PERRL, conjunctivae normal, anicteric sclerae ENMT: Mouth: + dry oral mucous membranes Respiratory: + retractions, + uses accessory muscles, + cough (dry), able to speak in complete sentences and + tachypneic (just walked back from bathroom) Auscultation: + diminished lung sounds (throughout); no crackles, no rales, no rhonchi and no wheezes Cardiovascular: Rate/Rhythm: regular rate and regular rhythm Heart Sounds: no murmur Extremities: normal capillary refill; no calf tenderness and no pedal edema Gastrointestinal (Abdomen): Inspection/Auscultation: normal bowel sounds Percussion/Palpation: abdomen soft; abdomen nontender Musculoskeletal: no cyanosis or clubbing, extremities motor strength 5/5 Skin: no rashes, warm and dry Neurologic: moves all extremities and awake; no focal motor deficits and not confused Psychiatric: Orientation: alert, oriented to person and oriented to place; + not oriented to time Genitourinary: no CVA tenderness Results & Data Results & Data ([facility]) Vital Signs (Past 12 Hours) Vital Signs Temp Pulse Pulse Resp BP BP Pulse Ox 03/05/21 12:02 36.4 C L 82 22 128/74 95 03/05/21 08:00 36.8 C 77 74 20 114/64 95 03/05/21 06:40 94 03/05/21 06:15 20 84 L 03/05/21 04:39 73 18 111/87 93 03/05/21 03:05 20 94 03/05/21 03:00 88 L PG Care Time/CCT Total # of Minutes Spent Total Time Spent with Patient: Total time spent is greater than 50% in coordination of care (as documented) at patient's floor/unit and/or counseling patient: Coding Level of Care Code 45136 Subseq Hosp Care Lvl 3 Diagnoses Acute respiratory failure with hypoxia J96.01 COVID U07.1 DILIP (acute kidney injury) N17.9 D-dimer, elevated R79.89 Hyperlipidemia E78.5 Hypertension I10 Hypothyroid E03.9
[2021-03-05 16:00] LABS: Base Excess ABG -9.4 mEq/L (-9-1.8); HCO3 ABG 13 mmol/L (19-24); Oxygen Saturation ABG 95.2 % (90-95); PCO2 ABG 21 mmHg (35-46); PO2 ABG 73 mmHg (80-95)
[2021-03-05 16:07] LABS: Allen Test POS (Pos)
[2021-03-05] MEDS: SODIUM BICARBONATE 650 MG TAB PO SCH ×2 (16:11→19:54)
[2021-03-05 16:16] LABS: BUN Creatinine Ratio 40.9 (10-20); Calcium 7.9 mg/dl (8.5-10.1); Creatinine Clr Calc Pharmacy 36.5 ml/min; Est GFR (African American) 50.8 ml/min; Est GFR (Non-African American) 43.9 ml/min; Potassium 4.3 mmol/L (3.5-5.1)
[2021-03-05 16:17] LABS: C Reactive Protein 5.05 mg/dl (0-0.29)
--- NOTE | 2021-03-05 17:28 | CT Scan Report ---
CT SCAN OF THE ABDOMEN AND PELVIS WITHOUT CONTRAST CLINICAL HISTORY: DILIP, r/o obstruction COMPARISON STUDY: No previous studies for comparison. TECHNIQUE: CT scan of the abdomen and pelvis was performed from the lung bases to the proximal femurs . Images are reviewed in the axial, sagittal, and coronal planes. IV contrast was not administered fo r this examination. A dose lowering technique was utilized adhering to the principles of ALARA. CT DOSE: 507.44 mGycm FINDINGS: Lower chest: Confluent patchy areas of groundglass attenuation associated with minimal septal thicken ing in predominantly peripheral distribution within visualized portion of bilateral lungs might repre sent atypical pneumonia/Covid in appropriate clinical settings. 2.1 cm nodular consolidation is seen within subpleural aspect of the right lower lobe () Liver: The unenhanced liver is normal in size, contour, and attenuation. There is no intrahepatic surinder iary ductal dilatation. Gallbladder: Is fluid-filled with peripherally calcified gallstone within its dependent portion. Eval uation is limited due to motion artifact. Spleen: Normal in size and attenuation. Pancreas: Unremarkable. Adrenal glands: Unremarkable. Kidneys: The unenhanced kidneys are normal in size without hydronephrosis. Evaluation is limited due to motion artifact. 7 mm calculus is seen within the right renal pelvis.. Bowel: Minimal hiatal hernia is seen. Bowel loops are nondilated. Evaluation is limited due to motion artifact as well as lack of contrast. Appendix is nondilated. Questionable fat stranding is seen wit hin right lower quadrant, surrounding nondilated loop of bowel partially extend into the small right inguinal hernia and might represent developing strangulation, (series 2 images 67-78). Diverticulosis of sigmoid colon is seen without evidence of diverticulitis. Peritoneum: There is no intraperitoneal free air or abdominal ascites. Vasculature: Abdominal aorta is nondilated with extensive concentric calcifications of its wall exten ding into bilateral iliac arteries. Adenopathy: None. Pelvic viscera: Urinary bladder is adequately filled with urine. Prostate gland is enlarged. Skeletal structures: Multilevel degenerative changes of the spine. Mild osteopenia. IMPRESSION: 1. Opacities within visualized portion of the right and left lungs as detailed above, might represen t atypical pneumonia/Covid in appropriate clinical settings. Short-term follow-up in 4-6 weeks with n oncontrast CT of the chest nonemergency basis is recommended to document resolution. 2. Nondilated loops of bowel. Small right inguinal hernia with extension of the few nondilated loops of bowel and surrounding fat stranding might represent developing strangulation. Normal appendix. Fi ndings will be sent to patient's unit. 3. Diverticulosis of sigmoid colon without evidence of diverticulitis. 4. Nonobstructive nephrolithiasis on the right. 5. Minimal hiatal hernia. 6. Possible cholelithiasis. No evidence of cholecystitis. Evaluation is limited due to motion artifa ct. 7. Atherosclerosis. ACT 112: Positive. There are findings on this exam that require communication between the performing entity and the patient following Patient Test Result Information Act ([place] Act 112) guidelines. The above report was generated using voice recognition software. It may contain grammatical, syntax o r spelling errors. Electronically signed by: Yanet Light DO 03/05/2021 5:26 PM
--- NOTE | 2021-03-05 19:21 | Surgery Consultation ---
Date of Consultation March 05, 2021 Assessment & Plan (1) Right inguinal hernia: pt is a 85 year-old male who was admitted to hospital for COVID- pneumonia, pt had CT scan finding, small right inguinal hernia, consult to R/O incarcerated right inguinal hernia, IMP: right inguinal hernia small right inguinal hernia, no incarcerated signs, no surgery indication now, F/U my clinic 1 month, , sign off today, please call with questions, Thanks, History of Present Illness Reason for Consultation: right inguinal hernia Requesting Physician: Dio Puentes MD Attending Physician: Dio Puentes MD History of Present Illness Chief Complaint: Shortness of breath Primary Care Provider: DWAINE Ybarra This is an 85-year-old male with past medical history of hyperlipidemia, hypertension, and hypothyroidism that presents today with shortness of breath. Unfortunately, the patient is a very poor historian and speaks very little, does not answer many questions and may in fact be confused. There are no family members in the room with the patient at the time my evaluation. History is per ER physician. ER physician tells me that the patient's was recently diagnosed with Covid on 02/23 although she was having few symptoms. Patient himself had not been tested but started experiencing some chills with a cough as well as some malaise and anorexia several days prior to presentation. Patient started having shortness of breath which prompted EMS be called to suddenly bring patient to the emergency room. Triage documentation shows that the patient's blood pressure was stable and that was afebrile but his O2 sat was 89% on room air when he arrived. Patient was started on 5 L nasal cannula and subsequently placed on 6 L oxygen as. He seems to be comfortable with the time my evaluation. ER evaluation is concerning for Covid pneumonia as the patient had hypoxia, mild hypotension, and abnormal laboratory values that have been historically seen with Covid. Chest x-ray also showed bilateral alveolar infiltrate. Patient did subsequently test positive for Covid pneumonia. He is now being admitted for further treatment of this. The patient did note to me that he has not been vaccinated for Covid. I ( Christiano Mejia MD ) got a call for consult right inguinal hernia, I reviewed pt's H/P, labs, CT scan with pt and nurse at pt's bedside,pt denies any abdominal pain, pain no right groin pain, no bulging on right groin, no nausea, no vomiting, last BM this morning, Allergies Allergy/AdvReac Type Severity Reaction Status Date / Time No Known Allergies Allergy Verified 03/04/21 13:22 Home Medications Medication Instructions Recorded Confirmed Type amlodipine 10 mg tablet 10 mg PO DAILY #90 tab 06/05/20 03/04/21 Rx levothyroxine 50 mcg tablet 50 mcg PO DAILY 06/05/20 03/04/21 History lisinopril 20 mg tablet 20 mg PO BID #180 tab 06/05/20 03/04/21 Rx metoprolol succinate 50 mg 50 mg PO BID #180 tab 06/05/20 03/04/21 Rx tablet,extended release 24 hr simvastatin 20 mg tablet 20 mg PO DAILY #90 tab 06/05/20 03/04/21 Rx dextromethorphan-guaifenesin 5 10 ml PO Q6H PRN 03/04/21 03/04/21 History mg-100 mg/5 mL oral liquid (Robitussin Cough-Chest Congestion DM) Past Med/Surg History Medical History Hypertension Hypothyroid Surgical History History of cataract extraction Family History Aunt Breast cancer Father Myocardial infarction Denies family history of Ovarian cancer Prostate cancer Colorectal cancer Social History Smoking Status: Never smoker Second Hand Exposure: No; Hx Alcohol Use: No Hx Substance Use: No Preferred Language: Mongolian Visual Impairment: No Limitations Hearing Ability: Hard of Hearing Beliefs That Will Affect Care: None marital status: Current Living Situation: Spouse current occupational status: retired How many Children do You have: 3 Feels Safe at Home: Yes caffeine: Yes Dental Care, Regularly: Yes Physical Activity Frequency: Daily Physical Activity Frequency Comment: yard working- hunting Seatbelt Use: always Sunscreen Use: Yes Review of Systems Review of Systems: Patient is not very verbal, may be somewhat confused and review of systems is obtained for this reason. Allergies Allergy/AdvReac Type Severity Reaction Status Date / Time No Known Allergies Allergy Verified 03/04/21 13:22 Home Medications Medication Instructions Recorded Confirmed Type amlodipine 10 mg tablet 10 mg PO DAILY #90 tab 06/05/20 03/04/21 Rx levothyroxine 50 mcg tablet 50 mcg PO DAILY 06/05/20 03/04/21 History lisinopril 20 mg tablet 20 mg PO BID #180 tab 06/05/20 03/04/21 Rx metoprolol succinate 50 mg 50 mg PO BID #180 tab 06/05/20 03/04/21 Rx tablet,extended release 24 hr simvastatin 20 mg tablet 20 mg PO DAILY #90 tab 06/05/20 03/04/21 Rx dextromethorphan-guaifenesin 5 10 ml PO Q6H PRN 03/04/21 03/04/21 History mg-100 mg/5 mL oral liquid (Robitussin Cough-Chest Congestion DM) Patient History Medical History Hypertension Hypothyroid Surgical History History of cataract extraction Family History Aunt Breast cancer Father Myocardial infarction Denies family history of Ovarian cancer Prostate cancer Colorectal cancer Social History Smoking Status: Never smoker Second Hand Exposure: No; Hx Alcohol Use: No Hx Substance Use: No Preferred Language: Mongolian Communication Ability: Effective Visual Impairment: No Limitations Hearing Ability: Hard of Hearing [employer] Labor [employer] Required: No Beliefs That Will Affect Care: None marital status: Current Living Situation: Spouse current occupational status: retired How many Children do You have: 3 Other Information That Helps Us Care for You: No Feels Safe at Home: Yes Safety Concerns: Feels Safe At This Time caffeine: Yes Dental Care, Regularly: Yes Physical Activity Frequency: Daily Physical Activity Frequency Comment: yard working- hunting Seatbelt Use: always Sunscreen Use: Yes Assistive Devices: Oxygen - Continuous Physical Exam Constitutional: WD/WN, vitals as above Eyes: PERRL, conjunctivae normal, anicteric sclerae Neck: trachea midline, no thyromegaly Respiratory: Auscultation: + diminished lung sounds and + rales Cardiovascular: RRR, no murmur, no edema Gastrointestinal (Abdomen): normal bowel sounds, soft, nontender, no hepatosplenomegaly soft, NT, ND, no bulging on right groin area, no tenderness at right groin area, BS + Neurologic: patellar DTR's 2+ bilat, sensation intact Psychiatric: A+Ox3, euthymic affect Results & Data ([facility]) Vital Signs (Past 12 Hours) Vital Signs Temp Pulse Pulse Resp BP BP Pulse Ox 03/05/21 18:43 92 H 03/05/21 15:35 36.8 C 101 H 18 139/78 92 03/05/21 12:02 36.4 C L 82 22 128/74 95 03/05/21 08:00 36.8 C 77 74 20 114/64 95 Laboratory Results Abnormal lab results 03/04/21 03/05/21 03/05/21 Range/Units 21:34 04:43 04:43 RBC 4.21 L (4.7-6.1) M/uL Hgb 12.8 L (14.0-18.0) g/dL Hct 37.6 L (42-52) % Lymph # (Auto) 0.49 L (1.2-3.4) K/uL Immature Gran # (Auto) 0.05 H (0.00-0.02) K/uL APTT 74.4 H* (21.0-31.0) Seconds ABG pCO2 (35-46) mmHg ABG pO2 (80-95) mmHg ABG HCO3 (19-24) mmol/L ABG O2 Saturation (90-95) % ABG Base Excess (-9-1.8) mEq/L Chloride 120 H (98-107) mmol/L Carbon Dioxide 15 L (21-32) mmol/L BUN 73 H (7-18) mg/dl Creatinine 1.75 H D (0.6-1.4) mg/dl BUN/Creatinine Ratio 41.7 H (10-20) Glucose 142 H (70-99) mg/dl Calcium 7.8 L (8.5-10.1) mg/dl AST 41 H (15-37) U/L C-Reactive Protein (0-0.29) mg/dl Albumin 2.6 L (3.4-5.0) gm/dl 03/05/21 03/05/21 03/05/21 Range/Units 04:43 15:51 15:51 RBC (4.7-6.1) M/uL Hgb (14.0-18.0) g/dL Hct (42-52) % Lymph # (Auto) (1.2-3.4) K/uL Immature Gran # (Auto) (0.00-0.02) K/uL APTT 64.2 H* (21.0-31.0) Seconds ABG pCO2 21 L (35-46) mmHg ABG pO2 73 L (80-95) mmHg ABG HCO3 13 L (19-24) mmol/L ABG O2 Saturation 95.2 H (90-95) % ABG Base Excess -9.4 L (-9-1.8) mEq/L Chloride 122 H (98-107) mmol/L Carbon Dioxide 15 L (21-32) mmol/L BUN 60 H (7-18) mg/dl Creatinine 1.46 H (0.6-1.4) mg/dl BUN/Creatinine Ratio 40.9 H (10-20) Glucose 152 H (70-99) mg/dl Calcium 7.9 L (8.5-10.1) mg/dl AST (15-37) U/L C-Reactive Protein 5.05 H (0-0.29) mg/dl Albumin (3.4-5.0) gm/dl Diagnostic Findings CT SCAN OF THE ABDOMEN AND PELVIS WITHOUT CONTRAST CLINICAL HISTORY: DILIP, r/o obstruction COMPARISON STUDY: No previous studies for comparison. TECHNIQUE: CT scan of the abdomen and pelvis was performed from the lung bases to the proximal femurs. Images are reviewed in the axial, sagittal, and coronal planes. IV contrast was not administered for this examination. A dose lowering technique was utilized adhering to the principles of ALARA. CT DOSE: 507.44 mGycm FINDINGS: Lower chest: Confluent patchy areas of groundglass attenuation associated with minimal septal thickening in predominantly peripheral distribution within visualized portion of bilateral lungs might represent atypical pneumonia/Covid in appropriate clinical settings. 2.1 cm nodular consolidation is seen within subpleural aspect of the right lower lobe (3/93) Liver: The unenhanced liver is normal in size, contour, and attenuation. There is no intrahepatic biliary ductal dilatation. Gallbladder: Is fluid-filled with peripherally calcified gallstone within its dependent portion. Evaluation is limited due to motion artifact. Spleen: Normal in size and attenuation. Pancreas: Unremarkable. Adrenal glands: Unremarkable. Kidneys: The unenhanced kidneys are normal in size without hydronephrosis. Evaluation is limited due to motion artifact. 7 mm calculus is seen within the right renal pelvis.. Bowel: Minimal hiatal hernia is seen. Bowel loops are nondilated. Evaluation is limited due to motion artifact as well as lack of contrast. Appendix is nondilated. Questionable fat stranding is seen within right lower quadrant, surrounding nondilated loop of bowel partially extend into the small right inguinal hernia and might represent developing strangulation, (series 2 images 67-78). Diverticulosis of sigmoid colon is seen without evidence of diverticulitis. Peritoneum: There is no intraperitoneal free air or abdominal ascites. Vasculature: Abdominal aorta is nondilated with extensive concentric calcifications of its wall extending into bilateral iliac arteries. Adenopathy: None. Pelvic viscera: Urinary bladder is adequately filled with urine. Prostate gland is enlarged. Skeletal structures: Multilevel degenerative changes of the spine. Mild osteopenia. IMPRESSION: 1. Opacities within visualized portion of the right and left lungs as detailed above, might represent atypical pneumonia/Covid in appropriate clinical settings. Short-term follow-up in 4-[address] of the chest nonemergency basis is recommended to document resolution. 2. Nondilated loops of bowel. Small right inguinal hernia with extension of the few nondilated loops of bowel and surrounding fat stranding might represent developing strangulation. Normal appendix. Findings will be sent to patient's unit. 3. Diverticulosis of sigmoid colon without evidence of diverticulitis. 4. Nonobstructive nephrolithiasis on the right. 5. Minimal hiatal hernia. 6. Possible cholelithiasis. No evidence of cholecystitis. Evaluation is limited due to motion artifact. 7. Atherosclerosis. XR chest 1V portable HISTORY: 85 years-old Male SEPSIS acute sepsis COMPARISON: None TECHNIQUE: Semierect portable AP view of the chest FINDINGS: Cardiac silhouette is enlarged. Pulmonary vascular congestion. No pneumothorax. Mild blunting of the costophrenic angles suggestive of trace effusions. Interstitial coarsening with patchy bibasilar and right lateral midlung airspace opacities. Degenerative changes of the shoulders and spine. IMPRESSION: 1. Cardiomegaly with pulmonary vascular congestion. 2. Patchy right lateral midlung and ill-defined bibasilar densities are suspicious for superimposed infectious or inflammatory process. 3. Trace pleural effusions.
[2021-03-05] MEDS ORDERED: METOPROLOL SUCC 25MG EXT REL TAB PO SCH (21:00)
[2021-03-05] MEDS: HEPARIN SOD 5,000 UNIT/0.5 ML VIAL SQ SCH (23:41)
[2021-03-06] MEDS: LEVOTHYROXINE SODIUM 50 MCG TABLET PO SCH (06:49)
[2021-03-06] MEDS: HEPARIN SOD 5,000 UNIT/0.5 ML VIAL SQ SCH (06:49)
--- NOTE | 2021-03-06 07:36 | XRay Report ---
XR chest 1V portable HISTORY: 85 years-old Male COVID acute shortness of breath. COVID Positive COMPARISON: 03/04/2021 chest radiograph, CT abdomen and pelvis 03/05/2021 TECHNIQUE: Portable AP view of the chest FINDINGS: Cardiomediastinal and hilar silhouettes are within normal limits. Right greater than left bilateral i ll-defined opacities correlate with the groundglass density seen on comparison CT and are generally s table from comparison. No pneumothorax, pleural effusion or overt pulmonary edema. Spondylitic spurri ng of the spine. IMPRESSION: Right greater than left bilateral ill-defined bilateral pulmonary opacities are stable fr om comparison compatible with viral pneumonia. ACT 112: Negative or not required by law. The above report was generated using voice recognition software. It may contain grammatical, syntax o r spelling errors. Electronically signed by: Yehuda Khalil M.D. 03/06/2021 7:35 AM
[2021-03-06] MEDS ORDERED: Heparin IV Adult Wt-Based Standard *NO* Bolus Protocol IV SCH (08:15)
[2021-03-06] MEDS ORDERED: HEPARIN SODIUM/DEXTROSE 25,000 UNITS/500 ML BAG IV SCH (08:30)
--- NOTE | 2021-03-06 08:54 | Hospitalist Progress Note ---
Date of Service March 06, 2021 Assessment & Plan (1) Acute respiratory failure with hypoxia: Plan: Continue on PCU Aim O2 sats > 90% Secondary to COVID-19 pneumonia (2) COVID: Plan: Patient has typical Covid pneumonia with accompanying lab abnormalities Continue Dexamethasone 6mg IV daily Hold further remdesivir due to DILIP Blood cultures negative to date. Get sputum cultures if possible, currently uncollected. (3) DILIP (acute kidney injury): Plan: Improving now off IV fluids since 03/05 Hold lisinopril Secondary to poor oral intake in setting of COVID-19 Hematuria occurred after stoll cath insertion (4) Metabolic acidosis: Plan: Normal anion gap. Hyperchloremia/hypernatremia after NSS given on admission and sodium bicarb started yesterday. Reduce sodium bicarbonate to 650mg PO BID as now with hypernatremia. Repeat labs in afternoon. (5) Urinary retention: Plan: PVR > 400ml. Continue stoll catheter. (6) Gross hematuria: Plan: Continue stoll cath UA + micro +/- culture Hold further heparin Follow up with urology as outpatient (7) Atrial fibrillation with RVR: Plan: Initial anticoagulation with IV/SQ heparin, now with gross hematuria. Switch metoprolol succinate to tartrate 25mg PO QID (8) Hypertension: Plan: Lisinopril and amlodipine on hold. Metoprolol as above. (9) D-dimer, elevated: Plan: Given hemodynamic stability and only mild hypoxia with d-dimer within range expected for COVID-19. Low suspicion for PE at this time. No calf pain / tenderness / swelling to suggest DVT (10) Hyperlipidemia: Plan: Patient is on simvastatin 20 mg daily, switched to Lipitor, potential interaction with amlodipine (11) Hypothyroid: Plan: Continue levothyroxine 50 mcg daily (12) Right inguinal hernia: Plan: Appreciate surgical consult. Agree no concern for strangulated hernia at this time. Plan: VTE prophylaxis - anticoagulation on hold secondary to gross hematuria Disposition - continue on PCU Admission and Anticipated Discharge Date Admission Date: March 04, 2021 Subjective Gross hematuria started overnight with stoll catheter. Patient appears fidgety and having chills. Stable shortness of breath and dry cough. Lots of nasal congestion. Appetite still very poor. Updated his son Gianluca over the phone. Review of Systems Review of Systems: All systems reviewed & are unremarkable except as noted in HPI & below Physical Exam Constitutional: well developed and + acute distress (respiratory); + not well nourished ENMT: Mouth: + dry oral mucous membranes Respiratory: + retractions, + uses accessory muscles, + cough (dry) and able to speak in complete sentences; not tachypneic Auscultation: + diminished lung sounds (throughout); no crackles, no rales, no rhonchi and no wheezes Cardiovascular: Rate/Rhythm: + tachycardic and + irregularly irregular Heart Sounds: no murmur Extremities: normal capillary refill; no calf tenderness and no pedal edema Gastrointestinal (Abdomen): Inspection/Auscultation: normal bowel sounds Percussion/Palpation: abdomen soft; abdomen nontender Musculoskeletal: no cyanosis or clubbing, extremities motor strength 5/5 Skin: no rashes, warm and dry Neurologic: moves all extremities and awake; no focal motor deficits and not confused Psychiatric: Orientation: alert, oriented to person and oriented to place; + not oriented to time Genitourinary: no CVA tenderness Stoll cath with gross bloody urine Results & Data Results & Data ([facility]) Vital Signs (Past 12 Hours) Vital Signs Temp Pulse Pulse Resp BP Pulse Ox 03/06/21 07:26 36.8 C 101 H 21 139/82 90 03/06/21 07:18 101 H 03/06/21 04:05 36.9 C 98 H 16 142/82 H 91 03/05/21 23:44 37.4 C 101 H 20 125/87 90 PG Care Time/CCT Total # of Minutes Spent Total Time Spent with Patient: Total time spent is greater than 50% in coordination of care (as documented) at patient's floor/unit and/or counseling patient: Coding Level of Care Code 34468 Subseq Hosp Care Lvl 3 Diagnoses Acute respiratory failure with hypoxia J96.01 COVID U07.1 DILIP (acute kidney injury) N17.9 D-dimer, elevated R79.89 Hyperlipidemia E78.5 Hypertension I10 Hypothyroid E03.9 Atrial fibrillation with RVR I48.91 Gross hematuria R31.0 Right inguinal hernia K40.90 Metabolic acidosis E87.2 Urinary retention R33.9
--- NOTE | 2021-03-06 09:02 | Electrocardiogram Report ---
Test Reason : Blood Pressure : / mmHG Vent. Rate : 087 BPM Atrial Rate : 077 BPM P-R Int : 000 ms QRS Dur : 088 ms QT Int : 360 ms P-R-T Axes : 000 010 029 degrees QTc Int : 433 ms Atrial fibrillation Abnormal ECG No previous ECGs available Confirmed by Rupert Sagastume ([id number]) on 03/06/2021 9:02:28 AM Referred By: REFERRED SELF Confirmed By:Rupert Sagastume
[2021-03-06] MEDS: METOPROLOL TARTRATE 25 MG TAB PO SCH ×4 (09:17→20:15)
[2021-03-06] MEDS: SODIUM BICARBONATE 650 MG TAB PO SCH (09:18)
[2021-03-06] MEDS: ATORVASTATIN 20 MG TAB PO SCH (09:42)
[2021-03-06 09:55] LABS: Basophils # (auto) 0.01 K/uL (0-0.2); Basophils % (auto) 0.1 %; Hematocrit (blood only) 39.4 % (42-52); Hemoglobin 13.6 g/dL (14.0-18.0); Immature Granulocytes # (auto) 0.14 K/uL (0.00-0.02); Immature Granulocytes % (auto) 0.9 %; Lymphocytes % (auto) 7.2 %; Mean Corpuscular Hemoglobin 30.6 pg (25-34); Mean Corpuscular Volume 88.7 fL (80-100); Mean Platelet Volume 8.8 fL (7.4-10.4); Monocytes # (auto) 0.81 K/uL (0.11-0.59); Monocytes % (auto) 5.3 %; Neutrophils # (auto) 13.29 K/uL (1.4-6.5); Neutrophils % (auto) 86.5 %; Platelet Count 501 K/uL (130-400); RDW Coefficient of Variation 13.6 % (11.5-14.5); RDW Standard Deviation 44.6 fL (36.4-46.3); Red Blood Count 4.44 M/uL (4.7-6.1); White Blood Count 15.35 K/uL (4.8-10.8)
[2021-03-06 10:02] LABS: Mean Corpuscular Hgb Conc 34.5 g/dL (32-36)
[2021-03-06 10:06] LABS: INR 1.2 (0.9-1.1); Partial Thromboplastin Ratio 1.1; Partial Thromboplastin Time 29.3 Seconds (21.0-31.0); Prothrombin Time 12.3 Seconds (9.0-12.0)
[2021-03-06 10:11] LABS: Appearance Urine Cloudy (Clear); Bilirubin Urine 1+ (Negative); Blood Urine 3+ (Negative); Color Urine Red; Glucose Urine UA Negative (Negative); Ketones Urine Trace (Negative); Leukocyte Esterase Urine Negative (Negative); Nitrite Urine Negative (Negative); Protein Urine 3+ (Negative); Urobilinogen Urine Negative (Negative); pH Urine 5.5 (4.5-7.5)
[2021-03-06 10:17] LABS: RBC Urine >30 /hpf (0-4)
[2021-03-06 10:27] LABS: Albumin Level 2.9 gm/dl (3.4-5.0); BUN Creatinine Ratio 37.1 (10-20); Bilirubin,Total 0.7 mg/dl (0.2-1); C Reactive Protein 3.15 mg/dl (0-0.29); Calcium 8.7 mg/dl (8.5-10.1); Creatinine Clr Calc Pharmacy 37.3 ml/min; Est GFR (African American) 53.5 ml/min; Est GFR (Non-African American) 46.1 ml/min; Potassium 4.3 mmol/L (3.5-5.1)
[2021-03-06 10:28] LABS: Bacteria Urine 2+ (Negative)
[2021-03-06 10:36] LABS: Albumin Globulin Ratio 0.7 (0.9-2); Globulin 4.1 gm/dl (2.5-4.0); Thyroid Stimulating Hormone 0.859 uIu/ml (0.300-4.500)
[2021-03-06] MEDS: cefTRIAXone SODIUM 1,000 MG in DEXTROSE 5% 50 ML IV SCH (11:26)
[2021-03-06] MEDS: dexAMETHasone 6 MG in SYRINGE 0 ML IV SCH (11:27)
[2021-03-06] MEDS: SODIUM CHLORIDE 0.9% 10ML FLUSH IV SCH (11:29)
[2021-03-06 14:47] LABS: BUN Creatinine Ratio 32.7 (10-20); Calcium 8.4 mg/dl (8.5-10.1); Creatinine Clr Calc Pharmacy 35.3 ml/min; Est GFR (Non-African American) 43.1 ml/min; Potassium 4.6 mmol/L (3.5-5.1)
[2021-03-06] MEDS ORDERED: SODIUM BICARBONATE 650 MG TAB PO SCH (21:00)
[2021-03-07 05:55] LABS: Basophils # (auto) 0.02 K/uL (0-0.2); Basophils % (auto) 0.1 %; Hematocrit (blood only) 44.2 % (42-52); Hemoglobin 15.2 g/dL (14.0-18.0); Immature Granulocytes % (auto) 1.1 %; Lymphocytes % (auto) 6.9 %; Mean Corpuscular Hgb Conc 34.4 g/dL (32-36); Mean Platelet Volume 8.9 fL (7.4-10.4); Monocytes # (auto) 0.81 K/uL (0.11-0.59); Monocytes % (auto) 4.6 %; Neutrophils # (auto) 15.22 K/uL (1.4-6.5); Neutrophils % (auto) 87.3 %; Platelet Count 502 K/uL (130-400); RDW Coefficient of Variation 13.7 % (11.5-14.5); RDW Standard Deviation 45.2 fL (36.4-46.3); Red Blood Count 4.91 M/uL (4.7-6.1); White Blood Count 17.45 K/uL (4.8-10.8)
[2021-03-07 06:25] LABS: Albumin Level 3.2 gm/dl (3.4-5.0); BUN Creatinine Ratio 34.7 (10-20); Creatinine Clr Calc Pharmacy 34.2 ml/min; Est GFR (African American) 49.2 ml/min; Est GFR (Non-African American) 42.4 ml/min; Potassium 4.3 mmol/L (3.5-5.1)
[2021-03-07 06:28] LABS: Albumin Globulin Ratio 0.7 (0.9-2); Bilirubin,Total 0.9 mg/dl (0.2-1); Globulin 4.4 gm/dl (2.5-4.0); Total Protein 7.6 gm/dl (6.4-8.2)
[2021-03-07] MEDS: LEVOTHYROXINE SODIUM 50 MCG TABLET PO SCH (06:37)
[2021-03-07] MEDS ORDERED: DEXTROSE 5% 1,000 ML IV SCH (08:15)
[2021-03-07] MEDS: METOPROLOL TARTRATE 25 MG TAB PO SCH ×2 (10:02→12:19)
[2021-03-07] MEDS: ATORVASTATIN 20 MG TAB PO SCH (10:02)
--- NOTE | 2021-03-07 10:23 | Hospitalist Progress Note ---
Date of Service March 07, 2021 Assessment & Plan (1) Acute respiratory failure with hypoxia: Plan: Continue on PCU Aim O2 sats > 90% Secondary to COVID-19 pneumonia (2) Metabolic encephalopathy: Plan: CT head -no acute intracranial abnormality Suspect delirium related to COVID-19 +/- hypernatremia. Less likely steroid induced. (3) COVID: Plan: Patient has typical COVID pneumonia with accompanying lab abnormalities Continue Dexamethasone 6mg IV daily Hold further Remdesivir due to DILIP Blood cultures negative to date. Get sputum cultures if possible, currently uncollected. (4) DILPI (acute kidney injury): Plan: Suspected prerenal secondary to poor oral intake in setting of COVID-19 Improvement initially due to normal saline given on admission. No obstructive cause on CT Unfortunately oral intake has not significantly increased and will restart on D5W due to persistent hypernatremia Hold lisinopril Hematuria occurred after stoll cath insertion -now improving (5) Metabolic acidosis: Plan: Normal anion gap. Improved with sodium bicarb. Hyperchloremia/hypernatremia after NSS given on admission and sodium bicarb started yesterday. Persistently high hypernatremia due to poor oral intake with associated rising creatinine. Start D5W @ 125 ml/hr and repeat BMP in afternoon. (6) Acute hypernatremia: Plan: Dehydration with poor oral intake. D5W as above (7) Urinary retention: Plan: PVR > 400ml. Continue stoll catheter. Start tamsulosin 0.4 mg at bedtime Recommend trial without Stoll prior to discharge. (8) Gross hematuria: Plan: Continue stoll cath Hold further heparin. Will consider restarting tomorrow. Urine culture x2 - stop ceftriaxone Follow up with urology as outpatient (9) Atrial fibrillation with RVR: Plan: New onset this admission TSH WNL TTE ordered Initial anticoagulation with heparin, stopped for gross hematuria 03/06. Consider restarting tomorrow. Rate better controlled on metoprolol tartrate 25 mg p.o. 4 times daily -switch to 50 mg twice daily (10) Hypertension: Plan: Lisinopril and amlodipine on hold. Metoprolol as above. (11) D-dimer, elevated: Plan: Given hemodynamic stability and only mild hypoxia with d-dimer within range expected for COVID-19. Low suspicion for PE at this time. No calf pain / tenderness / swelling to suggest DVT (12) Hyperlipidemia: Plan: Patient is on simvastatin 20 mg daily, switched to Lipitor, potential interaction with amlodipine (13) Hypothyroid: Plan: Continue levothyroxine 50 mcg daily (14) Right inguinal hernia: Plan: Appreciate surgical consult. Agree no concern for strangulated hernia at this time. Plan: VTE prophylaxis - anticoagulation on hold secondary to gross hematuria Disposition - continue on PCU Admission and Anticipated Discharge Date Admission Date: March 04, 2021 Subjective Hematuria much improved. Unable to get any history from patient as he appears more confused and agitated today requiring one-to-one to not pull his IVs or Stoll catheter. Managed to eat small amount of breakfast this morning although he currently has no opening his eyes for me or following one-step commands. Updated his son Hao over the phone. Telemetry reviewed: Atrial fibrillation in the 90s to low 100s Review of Systems Review of Systems: Unobtainable due to cognitive status Physical Exam Constitutional: well developed and + acute distress (Agitated); + not well nourished ENMT: Mouth: + dry oral mucous membranes Respiratory: normal respiratory effort and + cough (dry); no retractions, does not use accessory muscles and not tachypneic Auscultation: + diminished lung sounds (throughout); no crackles, no rales, no rhonchi and no wheezes Cardiovascular: Rate/Rhythm: + tachycardic and + irregularly irregular Heart Sounds: no murmur Extremities: normal capillary refill; no calf tenderness and no pedal edema Gastrointestinal (Abdomen): Inspection/Auscultation: normal bowel sounds Percussion/Palpation: abdomen soft; abdomen nontender Musculoskeletal: no cyanosis or clubbing, extremities motor strength 5/5 Skin: no rashes, warm and dry Neurologic: moves all extremities (Equal power bilaterally), awake and + confused (No longer following one-step commands) Psychiatric: Orientation: alert (To noxious stimuli); + not oriented to person, + not oriented to place and + not oriented to time Genitourinary: no CVA tenderness Results & Data Results & Data ([facility]) Vital Signs (Past 12 Hours) Vital Signs Temp Pulse Pulse Resp BP BP Pulse Ox 03/07/21 07:28 36.8 C 91 H 20 169/91 H 92 03/07/21 07:14 92 H 03/07/21 03:45 36.8 C 86 19 141/88 H 97 03/06/21 23:01 36.6 C 89 18 131/86 90 PG Care Time/CCT Total # of Minutes Spent Total Time Spent with Patient: Total time spent is greater than 50% in coordination of care (as documented) at patient's floor/unit and/or counseling patient: Coding Level of Care Code 13096 Subseq Hosp Care Lvl 3 Diagnoses Acute respiratory failure with hypoxia J96.01 COVID U07.1 DILIP (acute kidney injury) N17.9 Metabolic acidosis E87.2 Urinary retention R33.9 Gross hematuria R31.0 Atrial fibrillation with RVR I48.91 Hypertension I10 D-dimer, elevated R79.89 Hyperlipidemia E78.5 Hypothyroid E03.9 Right inguinal hernia K40.90 Metabolic encephalopathy G93.41 Acute hypernatremia E87.0
[2021-03-07] MEDS ORDERED: OLANZapine 10 MG/2.1 ML SDV IM SCH (10:30)
[2021-03-07] MEDS ORDERED: OLANZAPINE 2.5 MG TAB PO SCH (10:30)
[2021-03-07] MEDS ORDERED: OLANZapine 10 MG/2.1 ML SDV IM PRN (10:42)
[2021-03-07] MEDS: cefTRIAXone SODIUM 1,000 MG in DEXTROSE 5% 50 ML IV SCH (11:02)
[2021-03-07] MEDS: dexAMETHasone 6 MG in SYRINGE 0 ML IV SCH (12:19)
[2021-03-07] MEDS ORDERED: LORazepam 0.5 MG/1 ML VIAL IV STA (14:52)
--- NOTE | 2021-03-07 16:31 | CT Scan Report ---
CT head/brain wo con CLINICAL HISTORY: increasing confusion COMPARISON STUDY: No previous studies for comparison. TECHNIQUE: Axial CT of the brain is performed from the vertex to the skull base. IV contrast was not administered for this examination. A dose lowering technique was utilized adhering to the principles of ALARA. CT DOSE: 1902.14 mGycm FINDINGS: Limited exam due to beam hardening and motion artifact despite attempts. No intra or extra-axial mass lesions are visualized. There is no CT evidence of acute cortical infarc tion. There is no evidence of midline shift. There is no acute hemorrhage. No acute depressed calvar ial fractures are visualized. There are patchy white matter hypodensities likely on a small vessel basis. There is no evidence of pathologic ventricular dilatation. There is minimal atrophic changes of brain parenchyma. Minimal mucosal thickening is seen at dependent portion of the right maxillary sinus. The rest of vis ualized paranasal sinuses and mastoid air cells are patent and well-aerated. IMPRESSION: No acute intracranial hemorrhage, no midline shift or space occupying lesions. Minimal atrophic changes of brain parenchyma and chronic small vessel ischemia. Mild inflammatory changes within the right maxillary sinus/sinusitis. ACT 112: Negative or not required by law. The above report was generated using voice recognition software. It may contain grammatical, syntax o r spelling errors. Electronically signed by: Yanet Light DO 03/07/2021 4:30 PM
[2021-03-07 17:20] LABS: BUN Creatinine Ratio 35.1 (10-20); Calcium 8.4 mg/dl (8.5-10.1); Creatinine Clr Calc Pharmacy 37.7 ml/min; Est GFR (African American) 55.4 ml/min; Est GFR (Non-African American) 47.8 ml/min
[2021-03-07] MEDS: DEXTROSE 5% 1,000 ML IV SCH (17:35)
[2021-03-07] MEDS ORDERED: METOPROLOL TARTRATE 25 MG TAB PO SCH (21:00)
[2021-03-07] MEDS ORDERED: TAMSULOSIN HCL 0.4 MG CAP PO SCH (21:00)
[2021-03-07] MEDS: METOPROLOL TARTRATE 50 MG TAB PO SCH (21:02)
[2021-03-07 22:02] LABS: Allen Test Pos (Pos); Base Excess ABG -4.5 mEq/L (-9-1.8); HCO3 ABG 18 mmol/L (19-24); Oxygen Saturation ABG 95.5 % (90-95); PCO2 ABG 25 mmHg (35-46); PO2 ABG 74 mmHg (80-95); pH ABG 7.46 (7.35-7.45)
[2021-03-07] MEDS ORDERED: METOPROLOL TARTRATE 1 MG/ML VIAL IV STA (22:52)
[2021-03-07] MEDS ORDERED: METOPROLOL TARTRATE 1 MG/ML VIAL IV ONE (23:45)
[2021-03-08] MEDS: DEXTROSE 5% 1,000 ML IV SCH (01:50)
[2021-03-08] MEDS: LEVOTHYROXINE SODIUM 50 MCG TABLET PO SCH (06:45)
[2021-03-08 06:46] LABS: Hematocrit (blood only) 43.5 % (42-52); Hemoglobin 14.6 g/dL (14.0-18.0); Mean Corpuscular Hemoglobin 30.7 pg (25-34); Mean Corpuscular Hgb Conc 33.6 g/dL (32-36); Mean Corpuscular Volume 91.4 fL (80-100); Mean Platelet Volume 9.1 fL (7.4-10.4); Platelet Count 231 K/uL (130-400); RDW Coefficient of Variation 13.6 % (11.5-14.5); Red Blood Count 4.76 M/uL (4.7-6.1); White Blood Count 17.69 K/uL (4.8-10.8)
[2021-03-08 06:52] LABS: Basophils # (auto) 0.02 K/uL (0-0.2); Basophils % (auto) 0.1 %; Immature Granulocytes # (auto) 0.34 K/uL (0.00-0.02); Immature Granulocytes % (auto) 1.9 %; Lymphocytes # (auto) 1.49 K/uL (1.2-3.4); Lymphocytes % (auto) 8.4 %; Monocytes # (auto) 0.76 K/uL (0.11-0.59); Monocytes % (auto) 4.3 %; Neutrophils # (auto) 15.08 K/uL (1.4-6.5); Neutrophils % (auto) 85.3 %; Platelet Estimate Normal (Normal)
[2021-03-08 07:00] LABS: INR 1.5 (0.9-1.1); Partial Thromboplastin Ratio 1.2; Partial Thromboplastin Time 31.2 Seconds (21.0-31.0); Prothrombin Time 14.7 Seconds (9.0-12.0)
[2021-03-08 07:07] LABS: Albumin Level 3.1 gm/dl (3.4-5.0); Calcium 8.6 mg/dl (8.5-10.1); Creatinine Clr Calc Pharmacy 38.5 ml/min; Est GFR (African American) 57.9 ml/min; Potassium 4.7 mmol/L (3.5-5.1)
[2021-03-08 07:10] LABS: Albumin Globulin Ratio 0.8 (0.9-2); Bilirubin,Total 1.1 mg/dl (0.2-1); Total Protein 7.1 gm/dl (6.4-8.2)
[2021-03-08] MEDS ORDERED: Heparin IV Adult Wt-Based Low-Dose WITH Bolus Protocol IV STA (07:36)
[2021-03-08] MEDS ORDERED: HEPARIN SODIUM/DEXTROSE 25,000 UNITS/500 ML BAG IV SCH ×3 (08:15→08:45)
[2021-03-08] MEDS ORDERED: HEPARIN SOD (PORCINE) 1000 UNIT/ML IV ONE ×2 (08:15→09:00)
[2021-03-08] MEDS ORDERED: Heparin IV Adult Wt-Based Low-Dose *NO* Bolus Protocol ONE (08:17)
[2021-03-08] MEDS ORDERED: Heparin IV Adult Wt-Based Standard WITH Bolus Protocol IV STA (08:27)
[2021-03-08] MEDS: ATORVASTATIN 20 MG TAB PO SCH (08:28)
[2021-03-08] MEDS: METOPROLOL TARTRATE 50 MG TAB PO SCH (08:28)
--- NOTE | 2021-03-08 08:59 | Hospitalist Progress Note ---
Date of Service March 08, 2021 Assessment & Plan (1) Acute respiratory failure with hypoxia: Plan: Continue on PCU Aim O2 sats > 90% Secondary to COVID-19 pneumonia Worsening hypoxia overnight suspect from IV fluid given to correct hypernatremia. May benefit from lasix although main issue is currently his LLE ischemia. CXR ordered. (2) Ischemia of left lower extremity: Plan: Newly noticed this morning on exam but possible occurred last night when his rhythm changed to NSR. No DP or PT pulse in LLE. Doppler negative. Cold left leg from knee distally. CT angio LLE Start heparin standard with bolus - unfortunately with his recent gross hematuria, poor nutritional status, COVID-19 his prognosis is extremely poor. (3) Metabolic encephalopathy: Plan: CT head - no acute intracranial abnormality Worsening delirium this morning. Suspect related to LLE ischemia. Also multi-factorial related to lorazepam/Zyprexa given to enable him to have CT head yesterday, COVID-19 pneumonia and hypernatremia (now resolved). (4) COVID: Plan: Patient has typical COVID pneumonia with accompanying lab abnormalities Continue Dexamethasone 6mg IV daily Hold further Remdesivir due to DILIP Blood cultures negative to date. (5) DILIP (acute kidney injury): Plan: Suspected prerenal secondary to poor oral intake in setting of COVID-19 Improvement in Cr/BUN with volume resuscitation with normal saline on admission. No obstructive cause on CT Hold lisinopril Gross hemarturia occurred after stoll cath insertion - now resolved. (6) Metabolic acidosis: Plan: With respiratory compensation. Normal anion gap. Secondary to hyperchloremia. Now mostly resolved with improved DILIP and prior sodium bicarbonate use. (7) Acute hypernatremia: Plan: Na 145 this morning. Resolved with D5W given yesterday, now on hold due to worsening respiratory status. Dehydration with poor oral intake. (8) Urinary retention: Plan: PVR > 400ml. Continue stoll catheter. Started tamsulosin but unable to swallow this last night. (9) Gross hematuria: Plan: Continue stoll cath Urine culture x2 negative - stop ceftriaxone Follow up with urology as outpatient (10) Atrial fibrillation with RVR: Plan: New onset this admission, although not mentioned on H&P he has been in this since the ER. Switched to NSR around 7pm last night. TSH WNL TTE pending Initial anticoagulation with IV heparin, stopped for gross hematuria 03/06. Restart this morning due to LLE ischemia. (11) Hypertension: Plan: Lisinopril and amlodipine on hold. Metoprolol as above. (12) D-dimer, elevated: Plan: Low suspicion for PE on admission. Prior CT for PE deferred due to DILIP. Now on heparin anyway and more severe problem is his LLE ischemia. (13) Hyperlipidemia: Plan: Hold statin due to metabolic encephalopathy and unable to take pills at this time. (14) Hypothyroid: Plan: Continue levothyroxine 50 mcg daily (15) Right inguinal hernia: Plan: Appreciate surgical consult. Agree no concern for strangulated hernia at this time. Plan: VTE prophylaxis - Start heparin standard bolus and drip Disposition - continue on PCU pending CT LLE angio Admission and Anticipated Discharge Date Admission Date: March 04, 2021 Subjective No further hematuria off heparin. Increasingly confused overnight however with increasing oxygen requirement. Unable to take his medication last night due to altered mental state (Zyprexa and lorazepam given to enable CT head). Increased oxygen requirement to 8L oxymask overnight. Telemetry reviewed: Currently in NSR this morning. Switched from a. fib to NSR around 7pm last night. Review of Systems Review of Systems: Unobtainable due to cognitive status Physical Exam Constitutional: well developed and + acute distress (Agitated); + not well nourished ENMT: Mouth: + dry oral mucous membranes Respiratory: + respiratory distress, + labored breathing, + retractions and + uses accessory muscles; no cough and not tachypneic Auscultation: + diminished lung sounds (throughout); no crackles, no rales, no rhonchi and no wheezes Cardiovascular: Rate/Rhythm: regular rhythm and + tachycardic Heart Sounds: no murmur Vessels: + posterior tibial pulses abnormal (no LLE pulse) and + d orsalis pedis pulses abnormal (no LLE pulse) Extremities: + abnormal capillary refill, no calf tenderness and no pedal edema Gastrointestinal (Abdomen): Inspection/Auscultation: normal bowel sounds Percussion/Palpation: abdomen soft; abdomen nontender Musculoskeletal: no cyanosis or clubbing, extremities motor strength 5/5 Skin: no rashes, warm and dry Neurologic: moves all extremities (Equal power bilaterally) and + confused (No longer following one-step commands); + not awake Psychiatric: Orientation: alert (To noxious stimuli); + not oriented to person, + not oriented to place and + not oriented to time Results & Data Results & Data ([facility]) Vital Signs (Past 12 Hours) Vital Signs Temp Pulse Pulse Resp BP BP Pulse Ox 03/08/21 07:11 36.7 C 85 24 141/91 H 93 03/08/21 07:00 84 03/08/21 03:07 37.0 C 83 20 148/92 H 91 03/08/21 02:51 90 03/07/21 23:24 36.8 C 82 22 169/99 H 94 PG Care Time/CCT Total # of Minutes Spent Total Time Spent with Patient: Total time spent is greater than 50% in coordination of care (as documented) at patient's floor/unit and/or counseling patient: Coding Level of Care Code 18118 Subseq Hosp Care Lvl 3 Diagnoses Acute respiratory failure with hypoxia J96.01 Metabolic encephalopathy G93.41 COVID U07.1 DILIP (acute kidney injury) N17.9 Metabolic acidosis E87.2 Acute hypernatremia E87.0 Urinary retention R33.9 Gross hematuria R31.0 Atrial fibrillation with RVR I48.91 Hypertension I10 D-dimer, elevated R79.89 Hyperlipidemia E78.5 Hypothyroid E03.9 Right inguinal hernia K40.90 Ischemia of left lower extremity I99.8
[2021-03-08] MEDS ORDERED: OPTIRAY 320 125ml IV ONE (09:04)
--- NOTE | 2021-03-08 09:37 | CT Scan Report ---
CT ANGIOGRAM OF THE LEFT LOWER EXTREMITY CLINICAL HISTORY: Left leg pain. COMPARISON STUDY: No priors. TECHNIQUE: Following the IV administration of 120 cc of Optiray 320, CT angiogram of the left lower e xtremity is performed from the bony pelvis to the foot. Images are reviewed in the axial, sagittal, a nd coronal planes. 3-D MIPS images are created and assessed. IV contrast was administered without com plication. A dose lowering technique was utilized adhering to the principles of ALARA. The examinatio n is significantly compromised by motion artifact. CT DOSE: 1404.36 mGy.cm FINDINGS: No flow is identified within the left external iliac artery which is likely occluded. There is reconstitution of flow at the level of the common femoral artery. 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 The profunda femoris artery is patent. Extensive/diffuse atheroscler otic plaque and irregularity is seen throughout the left superficial femoral artery with diffuse 50-7 5% narrowing. There are foci of near complete to complete focal occlusion seen within the distal supe rficial femoral artery single on images #323 in #415. No flow is shown within the popliteal artery or within the calf vessels. These show advanced atherosclerotic calcification. There is diffuse atrophy of the regional musculature. The skeletal structures are osteopenic. No destructive bony lesion is i dentified. Sigmoid diverticulosis is partially visualized in the left pelvis. Prostatomegaly is parti ally imaged. There is no left inguinal adenopathy. IMPRESSION: 1. Severely degraded examination due to motion artifact and lack of contrast opacification. 2. Advanced atherosclerotic change is seen throughout the arteries of the left lower extremity. 3. 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 4. There is diffuse 50-75% lower narrowing throughout the superficial femoral artery with foci of pankaj r complete to complete thrombosis seen distally. 5. No contrast is shown within the popliteal artery or the calf arteries and these cannot be assessed . ACT 112: Negative or not required by law. Electronically signed by: Jama Dale M.D. 03/08/2021 9:36 AM
--- NOTE | 2021-03-08 09:43 | XRay Report ---
XR chest 1V portable CLINICAL HISTORY: worsening hypoxia COMPARISON STUDY: March 06, 2021 FINDINGS: No pneumothorax. No pleural effusion. Small atelectasis at the left base. Mixed reticular and airspace opacities are seen at the right mid to lower lung region. Previously seen diffuse hazy opacities within bilateral lungs are improved. Cardiomediastinal silhouette is within normal limits in size. Redemonstration of rightward deviation of intrathoracic trachea which could be due to mass effect from vasculature or mediastinal mass. No significant pulmonary vascular congestion.. Aorta is calcified. Osseous structures: Degenerative changes of the spine. IMPRESSION: 1. Small atelectasis at the left base. Atelectasis or infiltrates at the right mid to lower lung. In terval improvement of bilateral hazy opacities. 2. Stable focal deviation of the intrathoracic trachea to the right which could be due to mass effec t from vasculature or thyroid or mediastinal mass. Follow-up evaluation with CT of the chest on nonem ergency basis might be considered. ACT 112: Positive. There are findings on this exam that require communication between the performing entity and the patient following Patient Test Result Information Act ([place] Act 112) guidelines. The above report was generated using voice recognition software. It may contain grammatical, syntax o r spelling errors. Electronically signed by: Yanet Light DO 03/08/2021 9:41 AM
[2021-03-08 11:42] VITALS: TEMP 97.5
[2021-03-08] MEDS: dexAMETHasone 6 MG in SYRINGE 0 ML IV SCH (11:57)
[2021-03-08] MEDS ORDERED: ONDANSETRON 4 MG OD TAB SL PRN (13:41)
[2021-03-08] MEDS ORDERED: MoRPHine SULFATE 2 MG/ML CARP IV STA (13:41)
[2021-03-08] MEDS ORDERED: MoRPHine SULFATE 2 MG/ML CARP IV PRN ×2 (13:41→14:04)
[2021-03-08] MEDS ORDERED: LORazepam 0.5 MG TAB PO PRN (13:41)
[2021-03-08] MEDS ORDERED: ONDANSETRON INJ 2 MG/ML 2 ML VIAL IV PRN (13:41)
[2021-03-08] MEDS ORDERED: MoRPHine SULFATE 4 MG/ML 1 ML CARP\\VIAL ONE (13:42)
[2021-03-08] MEDS ORDERED: LORazepam 2 MG/4 ML VIAL ONE (13:45)
[2021-03-08 14:00] VITALS: O2SAT 90
[2021-03-08 14:02] VITALS: BP 138/85
[2021-03-08] MEDS ORDERED: STAT IV Infusion **Titration per Protocol STA (16:39)
[2021-03-08] MEDS: MoRPHine SULF/NSS 250 MG/250 ML BTL IV SCH (17:33)
[2021-03-08 18:47] VITALS: PULSE 114
[2021-03-08] MEDS: LORazepam 0.5 MG/1 ML VIAL IV PRN (19:21)
[2021-03-09] MEDS: MoRPHine SULF/NSS 250 MG/250 ML BTL IV SCH (11:56)
--- NOTE | 2021-03-09 12:32 | Palliative Care Consultation ---
Date of Consultation March 09, 2021 Assessment & Plan (1) Pain of left lower extremity: Very comfortable with morphine infusion running at 15mg per hour. Given DILIP, despite improvement from admission, there are concerns for morphine toxicity. Will decrease dose as tolerated for his comfort. 1555 Morphine infusion now running at 10mg/hr. No signs of morphine toxicity. He is a little restless at times. Agonal breathing. Discussed with RN. Will supplement morphine infusion with lorazepam and monitor. (2) Palliative care encounter: He appears to be actively dying. Per RN his family has been able to come in and visit with him. I tried to call his son, Rob, with no answer. Palliative care will follow. (3) Ischemia of left lower extremity: (4) D-dimer, elevated: (5) DILIP (acute kidney injury): (6) COVID: (7) Acute respiratory failure with hypoxia: History of Present Illness Reason for Consultation: goals of care, comfort care Requesting Physician: Dr. Puentes Attending Physician: Dio Scott History of Present Illness 85 yo gentleman who was admitted with acute hypoxic respiratory failure related to covid 19 pneumonia. 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 Per RN, he had severe pain yesterday in his left leg and family opted for comfort directed care. He received 2mg morphine IV without relief so morphine infusion was started. He is currently unresponsive and unable to provide history or review of systems but does appear to be comfortable. Allergies Allergy/AdvReac Type Severity Reaction Status Date / Time No Known Allergies Allergy Verified 03/04/21 13:22 Home Medications Medication Instructions Recorded Confirmed Type amlodipine 10 mg tablet 10 mg PO DAILY #90 tab 06/05/20 03/04/21 Rx levothyroxine 50 mcg tablet 50 mcg PO DAILY 06/05/20 03/04/21 History lisinopril 20 mg tablet 20 mg PO BID #180 tab 06/05/20 03/04/21 Rx metoprolol succinate 50 mg 50 mg PO BID #180 tab 06/05/20 03/04/21 Rx tablet,extended release 24 hr simvastatin 20 mg tablet 20 mg PO DAILY #90 tab 06/05/20 03/04/21 Rx dextromethorphan-guaifenesin 5 10 ml PO Q6H PRN 03/04/21 03/04/21 History mg-100 mg/5 mL oral liquid (Robitussin Cough-Chest Congestion DM) Patient History Medical History Hypertension Hypothyroid Surgical History History of cataract extraction Family History Aunt Breast cancer Father Myocardial infarction Denies family history of Ovarian cancer Prostate cancer Colorectal cancer Social History Smoking Status: Never smoker Second Hand Exposure: No; Hx Alcohol Use: No Hx Substance Use: No Preferred Language: German Communication Ability: Effective Visual Impairment: No Limitations Hearing Ability: Hard of Hearing Sock Turner Required: No Beliefs That Will Affect Care: None marital status: Current Living Situation: Spouse current occupational status: retired How many Children do You have: 3 Other Information That Helps Us Care for You: No Feels Safe at Home: Yes Safety Concerns: Feels Safe At This Time caffeine: Yes Dental Care, Regularly: Yes Physical Activity Frequency: Daily Physical Activity Frequency Comment: yard working- hunting Seatbelt Use: always Sunscreen Use: Yes Assistive Devices: Oxygen - Continuous Review of Systems Review of Systems: Unobtainable due to reduced consciousness Holden Symptom Assessment Scale PainAD 0/3 Dyspnea by observation 0/3 Palliative Performance Score 10% Physical Exam Constitutional: + ill appearing and comfortable; no acute distress ENMT: Mouth: + dry oral mucous membranes Respiratory: no labored breathing apnea, no audible rhonchi Cardiovascular: Rate/Rhythm: regular rate and regular rhythm left lower extremity cold and mottled mottling noted right LE Musculoskeletal: Extremities: + muscle atrophy Neurologic: + obtunded no myoclonus PG Care Time/CCT Total # of Minutes Spent Total Time Spent: 90 Total Time Spent with Patient: Total time spent is greater than 50% in coordination of care (as documented) at patient's floor/unit and/or counseling patient: symptom management, coordination of care with staff and pharmacy Coding Level of Care Code 81191 Initial Inpt Care Lvl 3 Diagnoses Pain of left lower extremity M79.605 Palliative care encounter Z51.5 Ischemia of left lower extremity I99.8 D-dimer, elevated R79.89 DILIP (acute kidney injury) N17.9 COVID U07.1 Acute respiratory failure with hypoxia J96.01
[2021-03-09] MEDS: LORazepam 0.5 MG/1 ML VIAL IV PRN (15:58)
[2021-03-09] MEDS ORDERED: SCOPOLAMINE 1 MG TDSY TD SCH (16:45)
--- NOTE | 2021-03-09 18:23 | Hospitalist Progress Note ---
Date of Service March 09, 2021 Assessment & Plan (1) Palliative care encounter: Plan: patient remains on comfort care measures after transitioning to such in the last 48 hours. had rapidly progressive acute hypoxic resp failure 2nd to COVID-19 pneumonia, severely altered MS, metabolic acidosis due to severe left leg ischemia (acute arterial thrombus in setting of COVID-19 and a.fib?), etc. cont morphine drip. add scopalamine patch. other comfort measures. d/c telemetry - move to med/surg. airborne precautions. (2) Need for comfort care: (3) Acute respiratory failure with hypoxia: (4) Pneumonia due to COVID-19 virus: (5) Ischemia of left lower extremity: (6) Acute hypernatremia: (7) Metabolic encephalopathy: (8) Urinary retention: (9) Metabolic acidosis: (10) Gross hematuria: (11) Atrial fibrillation with RVR: (12) DILIP (acute kidney injury): (13) Hypertension: (14) Hypothyroid: Plan: left message for son, Hao, on his voicemail offered my support Admission and Anticipated Discharge Date Admission Date: March 04, 2021 Subjective patient unresponsive/obtunded irregular breathing but no apnea mild increase work of breathing Physical Exam Physical Exam: gen - obtunded, unresponsive; frail appearing mouth - MM dry heart - tachy, s1 s2 lungs - diffuse course BS b/l, irregular breathing, mild retractions abd - soft NT ext - left leg cold from knee to the foot; pulses absent left foot; pulses present right foot; early gangrene changes left foot PG Care Time/CCT Total # of Minutes Spent Total Time Spent with Patient: Total time spent is greater than 50% in coordination of care (as documented) at patient's floor/unit and/or counseling patient: Coding Level of Care Code 80017 Subseq Hosp Care Lvl 1 Diagnoses Acute respiratory failure with hypoxia J96.01 Pneumonia due to COVID-19 virus U07.1; J12.82 Ischemia of left lower extremity I99.8 Acute hypernatremia E87.0 Metabolic encephalopathy G93.41 Urinary retention R33.9 Metabolic acidosis E87.2 Gross hematuria R31.0 Atrial fibrillation with RVR I48.91 DILIP (acute kidney injury) N17.9 Hypertension I10 Hypothyroid E03.9 Palliative care encounter Z51.5 Need for comfort care
[2021-03-10] MEDS ORDERED: CHECK SCOPOLAMINE PATCH PLACEMENT SCH ×2
--- NOTE | 2021-03-10 06:21 | Death Pronouncement Note ---
Date of Service March 10, 2021 Pronouncement Note Admission Date Admission Date: March 04, 2021 Date and Time of Date of : 03/10/21 Time of : 05:40 Contributing Factors (1) Pain of left lower extremity: (2) Palliative care encounter: (3) Ischemia of left lower extremity: (4) D-dimer, elevated: (5) DILIP (acute kidney injury): (6) COVID: (7) Acute respiratory failure with hypoxia: Summary Additional details: Night team notified that patient at 5:40AM. A nurse to nurse pronouncement was done. Nursing staff notified family members of patient's passing. Additional Data Family: contacted Attending physician: Dio Scott Was code activated?: No Autopsy requested?: No
--- NOTE | 2021-03-10 11:24 | Discharge Summary ---
Date of Service date of admission - March 04, 2021 date of - March 10, 2021 time of - 0540 Admission HPI Per Admitting Provider This is an 85-year-old male with past medical history of hyperlipidemia, hypertension, and hypothyroidism that presents today with shortness of breath. Unfortunately, the patient is a very poor historian and speaks very little, does not answer many questions and may in fact be confused. There are no family members in the room with the patient at the time my evaluation. History is per ER physician. ER physician tells me that the patient's was recently diagnosed with Covid on 02/23 although she was having few symptoms. Patient himself had not been tested but started experiencing some chills with a cough as well as some malaise and anorexia several days prior to presentation. Patient started having shortness of breath which prompted EMS be called to suddenly bring patient to the emergency room. Triage documentation shows that the patient's blood pressure was stable and that was afebrile but his O2 sat was 89% on room air whe n he arrived. Patient was started on 5 L nasal cannula and subsequently placed on 6 L oxygen as. He seems to be comfortable with the time my evaluation. ER evaluation is concerning for Covid pneumonia as the patient had hypoxia, mild hypotension, and abnormal laboratory values that have been historically seen with Covid. Chest x-ray also showed bilateral alveolar infiltrate. Patient did subsequently test positive for Covid pneumonia. He is now being admitted for further treatment of this. The patient did note to me that he has not been vaccinated for Covid. Principal Diagnosis acute hypoxic respiratory failure 2nd to COVID-19 pneumonia acute ischemia of LLE, likely 2nd to hypercoagulable state from COVID-19 as well as paroxysmal a.fib Discharge Exam final exam prior to - see my physical exam findings from 03/09/21 progress note Discharge Data Allergies Allergy/AdvReac Type Severity Reaction Status Date / Time No Known Allergies Allergy Verified 03/04/21 13:22 Consultations general surgery palliative care Ordered Studies 03/05/21 14:58 CT abd pelvis wo con Urgent 03/07/21 13:41 CT head/brain wo con Urgent 03/08/21 08:23 CT angio LE LT w inc wo if don Stat Hospital Course (1) Palliative care encounter: Following admission for his COVID-19 infection he had rapidly progressive acute hypoxic respiratory failure 2nd to COVID-19 pneumonia, severely altered mental status, development of rapid a.fib, metabolic acidosis due to severe left leg ischemia (acute arterial thrombus in setting of COVID-19 and paroxysmal a.fib), hypernatremia, acute kidney injury, etc. There was investigation into whether the patient was a surgical candidate for his acute left leg ischemia however calls to tertiary care deemed him NOT a candidate. Following the above, discussions were held with the patient's family regarding his overall status. He was made DNR, and was ultimately transitioned to a palliative care/comfort care pathway including use of morphine drip for respiratory distress. On the AM of 03/10/21 the patient passed peacefully at 0540. (2) Need for comfort care: (3) Acute respiratory failure with hypoxia: (4) Pneumonia due to COVID-19 virus: (5) Ischemia of left lower extremity: (6) Acute hypernatremia: (7) Metabolic encephalopathy: (8) Urinary retention: (9) Metabolic acidosis: (10) Gross hematuria: developed such after he was placed on systemic heparin for new-onset a.fib with RVR (11) Atrial fibrillation with RVR: new onset (12) DILIP (acute kidney injury): (13) Hypertension: (14) Hypothyroid: left message for son, Hao, on his voicemail offered my support Total Time Total Time Spent Total Time Spent (In Minutes): 15 (on date of ) Discharge Plan Discharge Items Patient Disposition: Discharge Diagnosis: acute hypoxic respiratory failure 2nd to COVID-19 pneumonia acute left leg ischemia Addtl Attending Provider Instructions: none Coding Level of Care Code None Diagnoses Palliative care encounter Z51.5 Need for comfort care Acute respiratory failure with hypoxia J96.01 Pneumonia due to COVID-19 virus U07.1; J12.82 Ischemia of left lower extremity I99.8 Acute hypernatremia E87.0 Metabolic encephalopathy G93.41 Urinary retention R33.9 Metabolic acidosis E87.2 Gross hematuria R31.0 Atrial fibrillation with RVR I48.91 DILIP (acute kidney injury) N17.9 Hypertension I10 Hypothyroid E03.9
== END 2021-03-10 07:17 | disposition expired | DRG 177 ==
LOC: ED 11:20 → SUATTDRO 14:35 → 2S 14:35 → 3W 03-09 19:52